=== PATIENT | male | born 1995 | race Caucasian/White ===

== ENCOUNTER 2023-03-01 13:48 | Outpatient (OUT) | payer BC, MEDICAID, SELFPAY ==
[2023-03-02 07:13] LABS: HIV Ab/p24 Ag Screen Non Reactive (Non Reactive)
== END 2023-03-01 13:49 ==
PROVIDERS: PCP Family Medicine; Visit Provider Family Medicine
DX: Z20.6 Contact with and (suspected) exposure to human immunodeficiency virus [HIV] (principal)
CPT/HCPCS: 36415; 87389

== ENCOUNTER 2023-03-09 07:58 | Outpatient (OUT) | payer BC, MEDICAID, SELFPAY ==
[2023-03-09 08:38] LABS: Basophils Absolute Auto 0.1 10^3/uL (0.0-0.1); Eosinophils Absolute Auto 0.2 10^3/uL (0.0-0.7); Eosinophils Percent Auto 4.2 % (0.9-7.0); Hematocrit 45.4 % (42.0-54.0); Hemoglobin 15.5 g/dL (14.0-18.0); Immature Granulocytes Abs Auto 0.01 10^3/uL (0.00-0.03); Immature Granulocytes Pct Auto 0.2 % (0.0-0.5); Lymphocytes Absolute Auto 1.9 10^3/uL (1.2-3.8); Lymphocytes Percent Auto 37.5 % (20.5-60.0); Mean Corpuscular HGB Conc 34.1 g/dL (29.9-35.2); Mean Corpuscular Hemoglobin 30.8 pg (25.9-34.0); Mean Corpuscular Volume 90.3 fL (80.0-94.0); Mean Platelet Volume 8.5 fL (9.5-13.5); Monocytes Absolute Auto 0.5 10^3/uL (0.3-0.8); Neutrophils Absolute Auto 2.4 10^3/uL (1.4-6.5); Neutrophils Percent Auto 48.1 % (43.0-75.0); Platelet Count 235 10^3/uL (150-450); Red Blood Count 5.03 10^6/uL (4.70-6.10); Red Cell Distribution Width 12.7 % (11.0-15.0)
[2023-03-09 08:49] LABS: Estimated Average Glucose 100 mg/dL; Glycohemoglobin A1C 5.1 % (4.5-6.2)
[2023-03-09 16:23] LABS: Alanine Aminotransferase 19 U/L (16-63); Albumin Globulin Ratio 1.4; Albumin Level 4.6 g/dL (3.4-5.0); Alkaline Phosphatase 78 U/L (46-116); Anion Gap 13.6; Aspartate Amino Transferase 10 U/L (15-37); BUN Creatinine Ratio 10.3; Bilirubin Total 0.5 mg/dL (0.2-1.0); Calcium 9.1 mg/dL (8.5-10.1); Carbon Dioxide 27.1 mmol/L (21.0-32.0); Chloride 100 mmol/L (98-107); Chol HDL Ratio 3.4; Cholesterol 159 mg/dL (<=200); Estimated GFR (African America >60 (>=60); Estimated GFR (Non-African Ame >60 (>=60); Globulin 3.2 g/dL; Glucose 90 mg/dL (74-106); HDL Cholesterol 47 mg/dL (40-60); Potassium 3.7 mmol/L (3.5-5.1); Sodium 137 mmol/L (136-145); Thyroid Stimulating Hormone 1.804 uIU/mL (0.358-3.740); Total Protein 7.8 g/dL (6.4-8.2); Triglycerides 55 mg/dL (<=150)
[2023-03-10 08:09] LABS: HBsAg Screen Negative (Negative); HCV Ab Non Reactive (Non Reactive); Hep A Ab, IgM Negative (Negative); Hep B Core Ab, IgM Negative (Negative)
== END 2023-03-09 07:59 ==
PROVIDERS: PCP Family Medicine; Visit Provider Family Medicine
DX: Z20.6 Contact with and (suspected) exposure to human immunodeficiency virus [HIV] (principal)
CPT/HCPCS: 36415; 80053; 80061; 80074; 83036; 83525; 84436; 84443; 84481; 85025

== ENCOUNTER 2023-04-05 13:39 | Outpatient (OUT) | payer BC, MEDICAID, SELFPAY ==
[2023-04-07 08:13] LABS: HIV Ab/p24 Ag Screen Non Reactive (Non Reactive)
== END 2023-04-05 13:40 | disposition home or self-care (01) ==
LOC: LAB 13:40
PROVIDERS: PCP Family Medicine; Visit Provider Family Medicine
DX: Z20.6 Contact with and (suspected) exposure to human immunodeficiency virus [HIV] (principal)
CPT/HCPCS: 36415; 87389

== ENCOUNTER 2023-06-25 09:21 | Outpatient (OUT) | payer BC, MEDICAID, SELFPAY ==
[2023-06-25 09:47] LABS: Basophils Absolute Auto 0.1 10^3/uL (0.0-0.1); Eosinophils Absolute Auto 0.2 10^3/uL (0.0-0.7); Eosinophils Percent Auto 4.1 % (0.9-7.0); Hematocrit 43.8 % (42.0-54.0); Immature Granulocytes Abs Auto 0.01 10^3/uL (0.00-0.03); Immature Granulocytes Pct Auto 0.2 % (0.0-0.5); Lymphocytes Absolute Auto 1.5 10^3/uL (1.2-3.8); Lymphocytes Percent Auto 29.3 % (20.5-60.0); Mean Corpuscular HGB Conc 34.2 g/dL (29.9-35.2); Mean Corpuscular Hemoglobin 30.9 pg (25.9-34.0); Mean Corpuscular Volume 90.3 fL (80.0-94.0); Mean Platelet Volume 8.6 fL (9.5-13.5); Monocytes Absolute Auto 0.5 10^3/uL (0.3-0.8); Monocytes Percent Auto 10.2 % (1.7-12.0); Neutrophils Absolute Auto 2.9 10^3/uL (1.4-6.5); Neutrophils Percent Auto 55.2 % (43.0-75.0); Platelet Count 208 10^3/uL (150-450); Red Blood Count 4.85 10^6/uL (4.70-6.10); Red Cell Distribution Width 12.6 % (11.0-15.0); White Blood Count 5.2 10^3/uL (4.0-11.0)
[2023-06-25 11:32] LABS: Alanine Aminotransferase 22 U/L (16-63); Albumin Globulin Ratio 1.6; Albumin Level 4.4 g/dL (3.4-5.0); Alkaline Phosphatase 80 U/L (46-116); Anion Gap 14.6; Aspartate Amino Transferase 12 U/L (15-37); BUN Creatinine Ratio 12.1; Calcium 9.5 mg/dL (8.5-10.1); Carbon Dioxide 27.4 mmol/L (21.0-32.0); Chloride 102 mmol/L (98-107); Estimated GFR (African America >60 (>=60); Estimated GFR (Non-African Ame >60 (>=60); Globulin 2.7 g/dL; Glucose 96 mg/dL (74-106); Sodium 140 mmol/L (136-145); Total Protein 7.1 g/dL (6.4-8.2)
[2023-06-26 08:12] LABS: HIV Ab/p24 Ag Screen Non Reactive (Non Reactive)
== END 2023-06-25 09:22 | disposition home or self-care (01) ==
PROVIDERS: PCP Family Medicine; Visit Provider Family Medicine
DX: Z20.6 Contact with and (suspected) exposure to human immunodeficiency virus [HIV] (principal)
CPT/HCPCS: 36415; 80053; 85025; 87389

== ENCOUNTER 2023-11-29 05:08 | Emergency (ER) | payer BC, SELFPAY ==
[2023-11-29 05:14] VITALS: BP 130/86; PULSE 97; RESP 16; TEMP 36.4; O2SAT 97; BMI 20.9
--- NOTE | 2023-11-29 05:17 | ECG_ITS ---
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
--- NOTE | 2023-11-29 05:41 | ED.WEAKNESS1 ---
HPI - Weakness General Chief complaint: Weakness Stated complaint: WEAKNESS Time Seen by Provider: 11/29/23 05:20 Source: patient and family Mode of arrival: Wheelchair Limitations: no limitations History of Present Illness HPI Narrative: This 28-year-old male with a history of anxiety and to some degree depression is brought to the emergency department by his father for evaluation of leg weakness. The patient states he got up this morning and could barely stand or walk due to weakness in his legs. He did not fall but states he was shaking and felt like he was going to fall. His father was able to help him into the car and brought him to the emergency department. He had to be assisted to the bed by the nursing staff from the wheelchair due to weakness in his legs. He denies any trauma or falls. He denies any back pain. He has no numbness or tingling. He states he feels like his legs are very heavy. The symptoms start at the level of his thighs and include the entire leg. He has not had any loss of bowel or bladder control. He does not have a headache or neck pain. The patient states that he has been taking Pristiq for his anxiety for the past 5-7 days. He is also on Xanax for his anxiety. Patient's mother when he was 13 and his brother also at a young age and it is the anniversary of his brother's and his birthday month in November. The patient states when he woke up this morning he felt like he was probably having anxiety while sleeping with spasms of his muscles and when he tried to get up and walk his muscles were weak from that. He took a Xanax prior to coming to the emergency department and states he is starting to feel somewhat better. He denies any fever. He has had a mild cough recently. He denies any chest pain at this time but states that since starting the Pristiq he has not had much of an appetite, it makes him feel nauseated after taking it and nothing tastes good to him. The patient states that he had mild generalized anxiety when he was younger and went to college at [employer]. Since graduating from college she has been living with his father and his anxiety has gotten to the point where he can barely leave the house. Getting into a car causes him severe anxiety to the extent that he works from home and walks to [employer] and that is the extent of his life and exercise. He had spoken to his Tele-Medicine about recently feeling like he was starting to exhibit depression which is when the Pristiq was started. He has been on other psychiatric medications in the past that he could not tolerate due to the side effects. MD Complaint: Reports focal weakness and difficulty walking Onset (ago): hour(s) (1) Duration: Reports constant Location: Reports LLE and RLE Severity: moderate Context: Reports new medication Related Data Home Medications Medication Instructions Recorded Confirmed alprazolam 0.25 mg tablet 0.5 mg PO DAILY 11/29/23 11/29/23 desvenlafaxine succinate 25 mg 25 mg PO Q24H 11/29/23 11/29/23 tablet,extended release 24 hr Allergies Allergy/AdvReac Type Severity Reaction Status Date / Time No Known Drug Allergies Allergy Verified 11/29/23 05:21 Review of Systems ROS Status of ROS 10 or more systems reviewed and unremarkable except as noted in history and below PFSH PFS Social History Smoking status: Current every day smoker Exam Narrative Exam Narrative: Nurses note and vital signs reviewed and patient is not hypoxic. General: Thin Mildly anxious male, no respiratory distress Skin: Warm, dry, no pallor noted. There is no rash noted. Head: Normocephalic, atraumatic Eye: Normal conjunctiva, no drainage, EOMI. PERRL. Vision is grossly intact Ears, Nose, Mouth, and Throat: oral mucosa is sticky Cardiovascular: Regular Rate and Rhythm S1S2, pulses are brisk and equal bilaterally Respiratory: Patient is in no distress, no accessory muscle use, lungs are clear to auscultation, no wheezing, rales or rhonchi Back: non-tender, no CVA tenderness bilaterally to percussion. GI: Normal bowel sounds, no tenderness to palpation, no masses appreciated. No rebound, guarding, or rigidity noted. Musculoskeletal: The patient has no evidence of calf tenderness, no pitting edema, symmetrical pulses noted bilaterally Neurological: A&O x4, normal speech, lower extremity strength is diffusely diminished subjectively but he is able to move all of his toes, has equal dorsi and plantar flexion, is able to lift each leg off of the bed and hold it against gravity. No saddle anesthesia appreciated. Upper extremity strength and sensation is intact. Psychiatric: Cooperative Constitutional Vital Signs, click to edit/add: Last Vital Signs Temp 97.5 F L 11/29/23 05:14 Pulse 97 H 11/29/23 05:14 Resp 16 11/29/23 05:14 BP 130/86 11/29/23 05:14 Pulse Ox 97 11/29/23 05:14 O2 Del Method Room Air 11/29/23 05:14 Course Vital Signs Vital signs: Vital Signs Temperature 97.5 F L 11/29/23 05:14 Pulse Rate 97 H 11/29/23 05:14 Respiratory Rate 16 11/29/23 05:14 Blood Pressure 130/86 11/29/23 05:14 Pulse Oximetry 97 11/29/23 05:14 Oxygen Delivery Method Room Air 11/29/23 05:14 Temperature 97.5 F L 11/29/23 05:14 Pulse Rate 97 H 11/29/23 05:14 Respiratory Rate 16 11/29/23 05:14 Blood Pressure 130/86 11/29/23 05:14 Pulse Oximetry 97 11/29/23 05:14 Oxygen Delivery Method Room Air 11/29/23 05:14 MDM - Weakness MDM Narrative Medical decision making narrative: This 28-year-old male presents for evaluation of bilateral lower extremity weakness and shakiness upon awakening this morning. Gently was started on Pristiq for anxiety and to a certain degree depression. He denies that this weakness started out in his feet or calves and spread upwards. His legs from the thighs down are generally weak and shaky since awakening this morning. He states his legs feel heavy. He does not have any back pain. He has not been eating well or drinking much since starting the Pristiq because he does not have an appetite and has been making him nauseous. His symptoms are not consistent with Guillan Anthon and his neuro exam, besides generalized weakness when standing is normal. Reviewed the side effects of this medication that can include chills, cold sweats, confusion, irregular pulse, numbness or tingling in the arms or legs, shakiness in the legs arms hands or feet and generalized weakness. Loss of appetite is another side effect. Loss of bladder control as a side effect but he has not had any loss of bowel or bladder control. He is not having a child breathing or swallowing he has not been vomiting and there is no sign of any jaundice. He was medicated emergency department with IV fluids. He had taken Xanax prior to coming to the emergency department because his symptoms were concerning to him and he thought he may be having a decided or panic while sleeping which was causing his muscles to spasm. He has a normal white count and hemoglobin. Electrolytes are normal.Inflammatory markers of sedimentation rate and CRP are normal. Respiratory panel is negative. Troponin is normal. CPK is normal indicating he is likely not in rhabdomyolysis. Clinically he is most likely experiencing a reaction from the Pristiq which appears to be improving at this time. He was able to ambulate to the bathroom and was stronger and steady on his feet. Urine is negative for blood or infection. He provided a urine sample and states that he does not feel that his symptoms are worsening or ascending. He would like to go home and agrees to return to the ER if he does have worsening symptoms or ascending symptoms. Lab Data Labs: Lab Results 11/29/23 11/29/23 11/29/23 Range/Units 05:24 05:46 06:41 WBC 6.5 (4.0-11.0) 10^3/uL RBC 4.93 (4.70-6.10) 10^6/uL Hgb 15.1 (14.0-18.0) g/dL Hct 43.5 (42.0-54.0) % MCV 88.2 (80.0-94.0) fL MCH 30.6 (25.9-34.0) pg MCHC 34.7 (29.9-35.2) g/dL RDW 12.2 (11.0-15.0) % Plt Count 245 (150-450) 10^3/uL MPV 8.6 L (9.5-13.5) fL Neut % (Auto) 50.6 (43.0-75.0) % Lymph % (Auto) 35.3 (20.5-60.0) % Whitman % (Auto) 9.5 (1.7-12.0) % Eos % (Auto) 3.4 (0.9-7.0) % Baso % (Auto) 0.9 (0.2-2.0) % Neut # (Auto) 3.3 (1.4-6.5) 10^3/uL Lymph # (Auto) 2.3 (1.2-3.8) 10^3/uL Whitman # (Auto) 0.6 (0.3-0.8) 10^3/uL Eos # (Auto) 0.2 (0.0-0.7) 10^3/uL Baso # (Auto) 0.1 (0.0-0.1) 10^3/uL Abs Immat Gran (auto) 0.02 (0.00-0.03) 10^3/uL Imm/Tot Granulo (auto) 0.3 (0.0-0.5) % ESR <1 (<=15) mm/hr Sodium 138 (136-145) mmol/L Potassium 3.6 (3.5-5.1) mmol/L Chloride 101 (98-107) mmol/L Carbon Dioxide 24.3 (21.0-32.0) mmol/L Anion Gap 16.3 BUN 12.0 (7.0-18.0) mg/dL Creatinine 1.04 (0.70-1.30) mg/dL Est GFR ( Amer) >60 (>=60) Est GFR (Non-Af Amer) >60 (>=60) BUN/Creatinine Ratio 11.5 Glucose 105 (74-106) mg/dL Calcium 9.0 (8.5-10.1) mg/dL Total Bilirubin 1.1 H (0.2-1.0) mg/dL AST 12 L (15-37) U/L ALT 17 (16-63) U/L Alkaline Phosphatase 75 (46-116) U/L Total Creatine Kinase 142 (39-308) U/L Troponin I High Sens <4.0 L (4.0-76.1) pg/mL C-Reactive Protein <0.50 (<=0.50) mg/dL Total Protein 7.4 (6.4-8.2) g/dL Albumin 4.5 (3.4-5.0) g/dL Globulin 2.9 g/dL Albumin/Globulin Ratio 1.6 Urine Color Lt. yellow (YELLOW) Urine Clarity Clear (CLEAR) Urine pH 7.0 (5.0-9.0) Ur Specific [place] 1.010 (1.005-1.025) Urine Protein Negative (NEG/TRACE) mg/dL Urine Glucose (UA) Negative (NEGATIVE) mg/dL Urine Ketones Negative (NEGATIVE) mg/dL Urine Occult Blood Trace-i (NEGATIVE) Urine Nitrite Negative (NEGATIVE) Urine Bilirubin Negative (NEGATIVE) Urine Urobilinogen 0.2 (0.2-1.0) EU/dL Ur Leukocyte Esterase Negative (NEGATIVE) Urine RBC 0-2 (0-2) #/HPF Urine WBC None seen (NONE SEEN) #/HPF Ur Squamous Epith Cells None seen (NONE/RARE) #/LPF Urine Crystals None seen (None Seen) #/HPF Urine Bacteria None seen (NONE SEEN) #/HPF Urine Casts None seen (NONE SEEN) #/LPF Urine Mucus None seen (NONE SEEN) Adenovirus (PCR) Not detected (NOT DETECTE) C. pneumoniae DNA (PCR) Not detected (NOT DETECTE) Coronavirus Type OC43 Not detected (NOT DETECTE) Coronavirus Type HKU1 Not detected (NOT DETECTE) Coronavirus Type 229E Not detected (NOT DETECTE) Coronavirus Type NL63 Not detected (NOT DETECTE) Human Metapneumovir PCR Not detected (NOT DETECTE) M. pneumoniae (PCR) Not detected (NOT DETECTE) Parainfluenza PCR Not detected (NOT DETECTE) Parainfluenza 2 (PCR) Not detected (NOT DETECTE) Parainfluenza 3 (PCR) Not detected (NOT DETECTE) Parainfluenza 4 (PCR) Not detected (NOT DETECTE) RSV (RT-PCR) Not detected (NOT DETECTE) Entero/Rhino (PCR) Not detected (NOT DETECTE) SARS-CoV-2 (PCR) Not detected (NOT DETECTE) Bordetella pertussis (PCR) Not detected (NOT DETECTE) B parapertussis DNA PCR Not detected (NOT DETECTE) Influenza Type A (PCR) Not detected (NOT DETECTE) Influenza Type B (PCR) Not detected (NOT DETECTE) ECG Data Attestation: I personally reviewed and interpreted this ECG as follows: (Sinus rhythm at 92 beats for minute, normal axis, nonspecific ST changes, no acute ST segment elevation or T-wave inversion) Discharge Plan Discharge Chief Complaint: Weakness Clinical Impression: Medication side effects, Bilateral leg weakness Patient Disposition: Home, Self-Care Time of Disposition Decision: 06:57 Condition: Fair Prescriptions / Home Meds: No Action desvenlafaxine succinate 25 mg tablet extended release 24 hr 25 mg PO Q24H alprazolam 0.25 mg tablet 0.5 mg PO DAILY Instructions: Weakness (ED), Adverse Drug Reaction (ED) Referrals: VERONICA LOUIS [Primary Care Provider] - 1 week Stand Alone Forms: Portal Instructions
[2023-11-29 05:43] LABS: Basophils Absolute Auto 0.1 10^3/uL (0.0-0.1); Basophils Percent Auto 0.9 % (0.2-2.0); Eosinophils Absolute Auto 0.2 10^3/uL (0.0-0.7); Eosinophils Percent Auto 3.4 % (0.9-7.0); Hematocrit 43.5 % (42.0-54.0); Hemoglobin 15.1 g/dL (14.0-18.0); Immature Granulocytes Abs Auto 0.02 10^3/uL (0.00-0.03); Immature Granulocytes Pct Auto 0.3 % (0.0-0.5); Lymphocytes Absolute Auto 2.3 10^3/uL (1.2-3.8); Lymphocytes Percent Auto 35.3 % (20.5-60.0); Mean Corpuscular HGB Conc 34.7 g/dL (29.9-35.2); Mean Corpuscular Hemoglobin 30.6 pg (25.9-34.0); Mean Corpuscular Volume 88.2 fL (80.0-94.0); Mean Platelet Volume 8.6 fL (9.5-13.5); Monocytes Absolute Auto 0.6 10^3/uL (0.3-0.8); Monocytes Percent Auto 9.5 % (1.7-12.0); Neutrophils Absolute Auto 3.3 10^3/uL (1.4-6.5); Neutrophils Percent Auto 50.6 % (43.0-75.0); Platelet Count 245 10^3/uL (150-450); Red Blood Count 4.93 10^6/uL (4.70-6.10); Red Cell Distribution Width 12.2 % (11.0-15.0); White Blood Count 6.5 10^3/uL (4.0-11.0)
[2023-11-29] MEDS: 0.9 % SODIUM CHLORIDE 1,000 ML 1000 ML IV (05:44)
[2023-11-29 05:48] LABS: Erythrocyte Sedimentation Rate <1 mm/hr (<=15)
[2023-11-29 05:50] LABS: Adenovirus NOT DETECTED (NOT DETECTE); Bordetella parapertussis NOT DETECTED (NOT DETECTE); Coronavirus 229E NOT DETECTED (NOT DETECTE); Coronavirus HKU1 NOT DETECTED (NOT DETECTE); Coronavirus NL63 NOT DETECTED (NOT DETECTE); Coronavirus OC43 NOT DETECTED (NOT DETECTE); Human Metapneumovirus NOT DETECTED (NOT DETECTE); Human Rhinovirus/Enterovirus NOT DETECTED (NOT DETECTE); Influenza A NOT DETECTED (NOT DETECTE); Influenza B NOT DETECTED (NOT DETECTE); Mycoplasma pneumoniae NOT DETECTED (NOT DETECTE); Parainfluenza Virus 1 NOT DETECTED (NOT DETECTE); Parainfluenza Virus 2 NOT DETECTED (NOT DETECTE); Parainfluenza Virus 3 NOT DETECTED (NOT DETECTE); Parainfluenza Virus 4 NOT DETECTED (NOT DETECTE); Respiratory Syncytial Virus NOT DETECTED (NOT DETECTE); SARS-CoV-2 NOT DETECTED (NOT DETECTE)
[2023-11-29 05:56] LABS: Alanine Aminotransferase 17 U/L (16-63); Albumin Globulin Ratio 1.6; Albumin Level 4.5 g/dL (3.4-5.0); Alkaline Phosphatase 75 U/L (46-116); Anion Gap 16.3; Aspartate Amino Transferase 12 U/L (15-37); BUN Creatinine Ratio 11.5; Bilirubin Total 1.1 mg/dL (0.2-1.0); Carbon Dioxide 24.3 mmol/L (21.0-32.0); Chloride 101 mmol/L (98-107); Estimated GFR (African America >60 (>=60); Estimated GFR (Non-African Ame >60 (>=60); Globulin 2.9 g/dL; Glucose 105 mg/dL (74-106); Potassium 3.6 mmol/L (3.5-5.1); Sodium 138 mmol/L (136-145); Total Protein 7.4 g/dL (6.4-8.2)
[2023-11-29 06:00] LABS: C Reactive Protein <0.50 mg/dL (<=0.50); Creatine Kinase 142 U/L (39-308); Troponin I High Sensitivity <4.0 pg/mL (4.0-76.1)
[2023-11-29 06:45] LABS: Bilirubin Urine NEGATIVE (NEGATIVE); Blood Urine TRACE-I (NEGATIVE); Clarity Urine CLEAR (CLEAR); Color Urine LT. YELLOW (YELLOW); Glucose Urine UA NEGATIVE (NEGATIVE); Ketones Urine NEGATIVE (NEGATIVE); Leukocyte Esterase Urine NEGATIVE (NEGATIVE); Nitrite Urine NEGATIVE (NEGATIVE); Protein Urine NEGATIVE (NEG/TRACE); Urobilinogen Urine 0.2 EU/dL (0.2-1.0)
[2023-11-29 06:51] LABS: Bacteria Urine NONE SEEN #/HPF (NONE SEEN); Crystals Seen? None Seen #/HPF (None Seen); Mucus Urine NONE SEEN (NONE SEEN); RBC Urine 0-2 #/HPF (0-2); Squamous Epithelial Cell Urine NONE SEEN #/LPF (NONE/RARE); WBC Urine NONE SEEN #/HPF (NONE SEEN)
[2023-11-29 06:52] LABS: Cast Seen? NONE SEEN #/LPF (NONE SEEN)
== END 2023-11-29 07:09 | disposition home or self-care (01) ==
PROVIDERS: Emergency Provider Emergency Medicine; PCP Nurse Practitioner
DX: R53.1 Weakness (principal); T43.215A Adverse effect of selective serotonin and norepinephrine reuptake inhibitors, initial encounter; F41.9 Anxiety disorder, unspecified; Z79.899 Other long term (current) drug therapy; F17.210 Nicotine dependence, cigarettes, uncomplicated; Z20.822 Contact with and (suspected) exposure to COVID-19
CPT/HCPCS: 0202U; 36415; 80053; 81001; 82550; 84484; 85025; 85652; 86140; 93005; 99283

== ENCOUNTER 2024-04-03 11:10 | Outpatient (OUT) | payer BC, SELFPAY ==
--- OUTSIDE RECORDS SUMMARY | 2024-04-03 11:20 | XMS_ITS | CCD ---
Author Organization [facility] Care Team Providers Care Staff Editor Name Role Phone CINDY ., DR INGRAM Attending Unavailable HOY ., DR INGRAM Admitting Unavailable HOY ., DR INGRAM Primary Care Unavailable HOY ., DR INGRAM Consulting Unavailable HOY ., DR INGRAM Admitting Unavailable HOY ., DR INGRAM Primary Care Unavailable HOY ., DR INGRAM Consulting Unavailable HOY ., DR INGRAM Attending Unavailable Mis, Waleska Shields Primary Care Physician Akbar Cooper Attending Unavailab Akbar Dyer Admitting Unavailab Nataly Matthews Primary Care Unavailable Cher Delcid Attending Unavailable Mis, Waleska Shields Attending Unavailable Mis, Waleska Shields Attending Unavailable Mis, Waleska Shields Attending Unavailable Mis, Waleska Shields Attending Unavailable Mis, Waleska Shields Attending Unavailable Mis, Waleska Shields Attending Unavailable Mis, Waleska Shields Admitting Unavailable Mis, Waleska Shields Attending Unavailable Mis, Waleska Shields Admitting Unavailable Mis, Waleska Shields Attending Unavailable Medications Current Medications Medication Drug Class(es) Dates Sig (Normalized) Sig (Original) ALPRAZolam 0.25 mg oral tablet (2 sources) Benzodiazepine Start: 11-26-2023 alprazolam 0.25 mg Tab 60 EA, 0 Refill(s), TAKE TWO TABLETS BY MOUTH DAILY NEEDED FOR ANXIETY, Refills(s) 0 Start Date: 11/26/23 Status: Ordered cabotegravir 30 MG Oral Tablet (1 source) Start: 11-26-2023 take 1 tablet by mouth once daily cabotegravir 30 mg oral tablet 30 mg = 1 tab(s), Oral, Daily, to be taken for 28 days prior to starting IM injections, # 28 tab(s), Refills(s) 0, Pharmacy: [facility], 158, cm, 11/26/23 13:08:00 EST, Height/Length Dosing, 54.3, kg, 11/26/23 13:08:00 EST, Weight Dosing Start Date: 11/26/23 Status: Ordered 24 hr desvenlafaxine succinate 25 mg extended release oral tablet (1 source) Serotonin and Norepinephrine Reuptake Inhibitor Start: 11-26-2023 take 1 tablet by mouth once daily desvenlafaxine 25 mg oral tablet, extended release 25 mg = 1 tab(s), Oral, Daily, Refills(s) 0 Start Date: 11/26/23 Status: Ordered esomeprazole 20 mg delayed release oral capsule (2 sources) Proton Pump Inhibitor Start: 11-26-2023 take 1 capsule by mouth once daily Nexium 20 mg Cap-DR 20 mg = 1 cap(s), Oral, Daily, Refills(s) 0 Start Date: 11/26/23 Status: Ordered montelukast 10 mg oral tablet (1 source) Leukotriene Receptor Antagonist Start: 02-27-2024 take 1 tablet by mouth once daily in the evening Singulair 10 mg Tab 10 mg = 1 tab(s), Oral, qPM, # 30 tab(s), Refills(s) 0, Pharmacy: [facility], 167, cm, 02/27/24 13:44:00 EDT, Height/Length Dosing, 54, kg, 02/27/24 13:44:00 EDT, Weight Dosing Start Date: 02/27/24 Status: Ordered Completed/Discontinued Medications Medication Drug Class(es) Dates Sig (Normalized) Sig (Original) hydrOXYzine pamoate 25 mg oral capsule (2 sources) Antihistamine Start: 11-26-2023 hydrOXYzine pamoate 25 mg Cap 90 EA, 0 Refill(s), TAKE ONE (1) CAPSULE BY MOUTH THREE TIMES PER DAY NEEDED FOR ANXIETY, Refills(s) 0 Start Date: 11/26/23 Status: Ordered Problems Problem Classification Problem Date Documented Da te Episodic/Chronic Genitourinary symptoms and ill-defined conditions (4 sources) Dysuria; Translations: [DYSURIA] Onset: 12-21-2022 Episodic Other injuries and conditions due to external causes (4 sources) Other specified effects of external causes, initial encounter; Translations: [OTH SPEC EFFECTS EXT CAUSES INITIAL] Onset: 12-12-2022 Episodic Other upper respiratory disease (1 source) Seasonal allergy 02-27-2024 Chronic Other upper respiratory infections (1 source) Sinusitis 01-22-2024 Chronic Otitis media and related conditions (1 source) Finding of fluid behind tympanic membrane 01-22-2024 Episodic Residual codes; unclassified (2 sources) High risk homosexual behavior 11-26-2023 Episodic Residual codes; unclassified (1 source) At risk of sexually transmitted infection 12-24-2023 Episodic Substance-related disorders (1 source) Smoker 02-27-2024 Chronic Results Test Name Value Interpretation Reference Range Facility [facility] 03-24-2024 Consent [id number]. [id number] Normal [facility] Ambulatory Visit Summaryon 0 03-23-2024 Ambulatory Visit Summary MALLORIEMAGGIE MORRIS :1995 Visit Date:03/23/2024 Ambulatory Visit Instructions Your Diagnosis Seasonal allergies Fluid level behind tympanic membrane of right ear Body mass index (BMI) of 19.0-19.9 in adult Underweight Your Care Team Attending Physician - Waleska Dean Primary Care Physician - Waleska Dean This Is Your Medications List alprazolam (alprazolam 0.25 mg Tab) esomeprazole (Nexium 20 mg Cap-DR) hydrOXYzine (hydrOXYzine pamoate 25 mg Cap) montelukast (Singulair 10 mg Tab) What to do next Scheduled Follow-Up Appointments 2023 1:20 PM EDT Where: [facility] Family Medicine Office/Clini c Noteon 03-23-2024 Family Medicine Office/Clinic Note HPI Staff Maggie is a 28 year old male presenting for acute sick visit Pt states allergies are bad and would like a Kenalog shot History of Present Illness pt presets today with allergy symptoms that are not improving. Physical Exam General: alert, no acute distress ENMT: oral mucosa moist, no pharyngeal erythema or exudate Cardiovascular: regular rate and rhythm, normal peripheral perfusion Respiratory: Lungs CTA, respirations non labored Extremities: no deformity, no trauma Neurological: oriented x 4, LOC appropriate for age, CN II-XII intact, motor strength equal & normal bilaterally, speech normal Assessment/Plan 1. Seasonal allergies (J30.2: Other seasonal allergic rhinitis) pt states allergy symptoms are worsening and he is miserable. pt to take zyrtec in am and singulair at night. kenalog given in office. RTC as needed Ordered: triamcinolone, 40 mg = 1 mL, Injection, IntraMuscular, Once, Stop date 03/23/24 15:43:00 EDT, Routine, Start date 03/23/24 15:43:00 EDT, 03/23/24 15:43:00 EDT 2. Fluid level behind tympanic membrane of right ear (H65.91: Unspecified nonsuppurative otitis media, right ear) right TM is still full of fluid. will give kenalog injection in office today. Ordered: triamcinolone, 40 mg = 1 mL, Injection, IntraMuscular, Once, Stop date 03/23/24 15:43:00 EDT, Routine, Start date 03/23/24 15:43:00 EDT, 03/23/24 15:43:00 EDT 3. Body mass index (BMI) of 19.0-19.9 in adult (Z68.1: Body mass index [BMI] 19.9 or less, adult) BMI education given Ordered: triamcinolone, 40 mg = 1 mL, Injection, IntraMuscular, Once, Stop date 03/23/24 15:43:00 EDT, Routine, Start date 03/23/24 15:43:00 EDT, 03/23/24 15:43:00 EDT 4. Underweight (R63.6: Underweight) Ordered: triamcinolone, 40 mg = 1 mL, Injection, IntraMuscular, Once, Stop date 03/23/24 15:43:00 EDT, Routine, Start date 03/23/24 15:43:00 EDT, 03/23/24 15:43:00 EDT Follow-up No qualifying data available Patient Education BMI for Adults Problem List/Past Medical History Ongoing At risk for sexually transmitted disease due to partner with HIV Body mass index (BMI) of 19.0-19.9 in adult Fluid level behind tympanic membrane of right ear High risk homosexual behavior Seasonal allergies Sinusitis Smoker Underweight Historical No qualifying data Medications alprazolam 0.25 mg Tab hydrOXYzine pamoate 25 mg Cap Nexium 20 mg Cap-DR, 20 mg= 1 cap(s), Oral, Daily Singulair 10 mg Tab, 10 mg= 1 tab(s), Oral, qPM Allergies No Known Allergies Social History Tobacco 10 or more cigarettes (1/2 pack or more)/day in last 30 days Tobacco Use:. Never Smokeless Tobacco Use:. Cigarettes, Ready to change: No. Household tobacco concerns: No. Yes, 03/23/2024 Family History Acute myocardial infarction: Mother and Father. Diabetes mellitus type 2: Mother. Immunizations Vaccine Date Status Comments SARS-CoV-2 (COVID-19) mRNA-1273 vaccine 09/18/2021 Recorded 2023-11-25: TPVALL influenza, unspecified formulation 07/14/2021 Recorded SARS-CoV-2 (COVID-19) mRNA-1273 vaccine 02/20/2021 Recorded 2023-11-25: TPVALL SARS-CoV-2 (COVID-19) mRNA-1273 vaccine 01/23/2021 Recorded 2023-11-25: TPVALL influenza virus vaccine, inactivated 07/26/2020 Recorded influenza virus vaccine, inactivated 07/13/2019 Recorded influenza virus vaccine, inactivated 08/13/2018 Recorded measles/mumps/rubella virus vaccine 03/01/1999 Recorded DTaP, unspecified formulation 03/01/1999 Recorded measles/mumps/rubella virus vaccine 03/25/1995 Recorded Hib, unspecified formulation 03/25/1995 Recorded DTaP, unspecified formulation 03/25/1995 Recorded hepatitis B pediatric vaccine 04/04/1994 Recorded Hib, unspecified formulation 04/04/1994 Recorded hepatitis B pediatric vaccine 1993 Recorded Hib, unspecified formulation 1993 Recorded hepatitis B pediatric vaccine 1993 Recorded Hib, unspecified formulation 1993 Recorded Normal [facility] Comment on above: Result Comment: Elec tronically Signed By: Waleska Dean\.br\Date and Time Signed: 03/23/24 15:45 EDT Patient Educationon 03-23-20 Patient Education Nutrition BMI for Adults What is BMI? Body mass index (BMI) is a number that is calculated from a person's weight and height. BMI can help estimate how much of a person's weight is composed of fat. BMI does not measure body fat directly. Rather, it is an alternative to procedures that directly measure body fat, which can be difficult and expensive. BMI can help identify people who may be at higher risk for certain medical problems. What are BMI measurements used for? BMI is used as a screening tool to identify possible weight problems. It helps determine whether a person is obese, overweight, a healthy weight, or underweight. BMI is useful for: ? Identifying a weight problem that may be related to a medical condition or may increase the risk for medical problems. ? Promoting changes, such as changes in diet and exercise, to help reach a healthy weight. BMI screening can be repeated to see if these changes are working. How is BMI calculated? BMI involves measuring your weight in relation to your height. Both height and weight are measured, and the BMI is calculated from those numbers. This can be done either in [place] or metric measurements. Note that charts and online BMI calculators are available to help you find your BMI quickly and easily without having to do these calculations yourself. To calculate your BMI in [place] measurements: 1. Measure your weight in pounds (lb). 2. Multiply the number of pounds by 703. ? For example, for a person who weighs 180 lb, multiply that number by 703, which equals 126,540. 3. Measure your height in inches. Then multiply that number by itself to get a measurement called inches squared. ? For example, for a person who is 70 inches tall, the inches squared measurement is 70 inches x 70 inches, which equals 4,900 inches squared. 4. Divide the total from step 2 (number of lb x 703) by the total from step 3 (inches squared): 126,540 ? 4,900 = 25.8. This is your BMI. To calculate your BMI in metric measurements: 1. Measure your weight in kilograms (kg). 2. Measure your height in meters (m). Then multiply that number by itself to get a measurement called meters squared. ? For example, for a person who is 1.75 m tall, the meters squared measurement is 1.75 m x 1.75 m, which is equal to 3.1 meters squared. 3. Divide the number of kilograms (your weight) by the meters squared number. In this example: 70 ? 3.1 = 22.6. This is your BMI. What do the results mean? BMI charts are used to identify whether you are underweight, normal weight, overweight, or obese. The following guidelines will be used: ? Underweight: BMI less than 18.5. ? Normal weight: BMI between 18.5 and 24.9. ? Overweight: BMI between 25 and 29.9. ? Obese: BMI of 30 or above. Keep these notes in mind: ? Weight includes both fat and muscle, so someone with a muscular build, such as an athlete, may have a BMI that is higher than 24.9. In cases like these, BMI is not an accurate measure of body fat. ? To determine if excess body fat is the cause of a BMI of 25 or higher, further assessments may need to be done by a health care provider. ? BMI is usually interpreted in the same way for men and women. Where to find more information For more information about BMI, including tools to quickly calculate your BMI, go to these websites: ? Centers for Disease Control and Prevention: www.cdc.gov ? [place] Heart Association: www.heart.org ? National Heart, Lung, and Blood [place]: www.nhlbi.nih.gov Summary ? Body mass index (BMI) is a number that is calculated from a person's weight and height. ? BMI may help estimate how much of a person's weight is composed of fat. BMI can help identify those who may be at higher risk for certain medical problems. ? BMI can be measured using [place] measurements or metric measurements. ? BMI charts are used to identify whether you are underweight, normal weight, overweight, or obese. This information is not intended to replace advice given to you by your health care provider. Make sure you discuss any questions you have with your health care provider. Document Revised: 06/08/2020 Document Reviewed: 04/15/2020 [employer] Patient Education ? 2022 [employer] Normal [facility] HIV Screen 4th Generation wR fxon 02-29-2024 HIV 1+2 Ab+HIV1 p24 Ag IA Ql Non-Reactive Invalid Interpretation Code Non Reactive [facility] Comment on above: Result Comment: HIV Negative HIV-1/HIV-2 antibodies and HIV-1 p24 antigen were NOT detected. There is no laboratory evidence of HIV infection. Performed at: [facility] [id number] PhD Alexandre Campo Performed By: #### [id number] #### [facility] [address] [place] [address] Family Medicine Office/Clini c Noteon 02-27-2024 Family Medicine Office/Clinic Note Chief Complaint follow up HPI Staff Maggie is a 28 year old male presenting for 3 month follow up on descovy. Will need HIV test Not taking descovy due to nausea and vomiting afterwards. No other concerns at this time. History of Present Illness pt presents today for 3 month follow up. Review of Systems PHQ Score Initial Depression Screen Score: 0 SCORE Physical Exam Vitals & Measurements HR: 68(Peripheral) RR: 16 BP: 106/64 HT: 66 in HT: 167 cm WT: 54 kg WT: 118.8 lb BMI: 19.36 General: alert, no acute distress ENMT: oral mucosa moist, no pharyngeal erythema or exudate Cardiovascular: regular rate and rhythm, normal peripheral perfusion Respiratory: Lungs CTA, respirations non labored Extremities: no deformity, no trauma Neurological: oriented x 4, LOC appropriate for age, CN II-XII intact, motor strength equal & normal bilaterally, speech normal Assessment/Plan 1. At risk for sexually transmitted disease due to partner with HIV (Z91.89: Other specified personal risk factors, not elsewhere classified) pt presents for 3 month follow up on descovy. pt was not able to keep it down. will just check his HIV status every 3 months. his partners viral load is 48 so not at undetected status. he continues to practice safe sex practices. RTC 3 months for lab draw Ordered: montelukast, 10 mg = 1 tab(s), Oral, qPM, # 30 tab(s), Refills(s) 0, Pharmacy: [facility], 167, cm, 02/27/24 13:44:00 EDT, Height/Length Dosing, 54, kg, 02/27/24 13:44:00 EDT, Weight Dosing HIV Screen 4th Generation wRfx 2. Seasonal allergies (J30.2: Other seasonal allergic rhinitis) takes zyrtec. offered kenalog. will try singulair first. Ordered: montelukast, 10 mg = 1 tab(s), Oral, qPM, # 30 tab(s), Refills(s) 0, Pharmacy: [facility], 167, cm, 02/27/24 13:44:00 EDT, Height/Length Dosing, 54, kg, 02/27/24 13:44:00 EDT, Weight Dosing 3. Body mass index [BMI] 19.9 or less, adult (Z68.1: Body mass index [BMI] 19.9 or less, adult) BMI education complete Ordered: montelukast, 10 mg = 1 tab(s), Oral, qPM, # 30 tab(s), Refills(s) 0, Pharmacy: [facility], 167, cm, 02/27/24 13:44:00 EDT, Height/Length Dosing, 54, kg, 02/27/24 13:44:00 EDT, Weight Dosing 4. Smoker (F17.200: Nicotine dependence, unspecified, uncomplicated) consider not smoking Ordered: montelukast, 10 mg = 1 tab(s), Oral, qPM, # 30 tab(s), Refills(s) 0, Pharmacy: [facility], 167, cm, 02/27/24 13:44:00 EDT, Height/Length Dosing, 54, kg, 02/27/24 13:44:00 EDT, Weight Dosing Current tobacco smoker [id number] Follow-up No qualifying data available Problem List/Past Medical History Ongoing At risk for sexually transmitted disease due to partner with HIV Fluid level behind tympanic membrane of right ear High risk homosexual behavior Seasonal allergies Sinusitis Smoker Historical No qualifying data Medications alprazolam 0.25 mg Tab hydrOXYzine pamoate 25 mg Cap Nexium 20 mg Cap-DR, 20 mg= 1 cap(s), Oral, Daily Singulair 10 mg Tab, 10 mg= 1 tab(s), Oral, qPM Allergies No Known Allergies Social History Tobacco 10 or more cigarettes (1/2 pack or more)/day in last 30 days Tobacco Use:. Never Smokeless Tobacco Use:. Cigarettes, Ready to change: No. Household tobacco concerns: No. Yes, 02/27/2024 Family History Acute myocardial infarction: Mother and Father. Diabetes mellitus type 2: Mother. Immunizations Vaccine Date Status Comments SARS-CoV-2 (COVID-19) mRNA-1273 vaccine 09/18/2021 Recorded 2023-11-25: TPVALL influenza, unspecified formulation 07/14/2021 Recorded SARS-CoV-2 (COVID-19) mRNA-1273 vaccine 02/20/2021 Recorded 2023-11-25: TPVALL SARS-CoV-2 (COVID-19) mRNA-1273 vaccine 01/23/2021 Recorded 2023-11-25: TPVALL influenza virus vaccine, inactivated 07/26/2020 Recorded influenza virus vaccine, inactivated 07/13/2019 Recorded influenza virus vaccine, inactivated 08/13/2018 Recorded measles/mumps/rubella virus vaccine 03/01/1999 Recorded DTaP, unspecified formulation 03/01/1999 Recorded measles/mumps/rubella virus vaccine 03/25/1995 Recorded Hib, unspecified formulation 03/25/1995 Recorded DTaP, unspecified formulation 03/25/1995 Recorded hepatitis B pediatric vaccine 04/04/1994 Recorded Hib, unspecified formulation 04/04/1994 Recorded hepatitis B pediatric vaccine 1993 Recorded Hib, unspecified formulation 1993 Recorded hepatitis B pediatric vaccine 1993 Recorded Hib, unspecified formulation 1993 Recorded Normal [facility] Comment on above: Result Comment: Elec tronically Signed By: Waleska Dean\.br\Date and Time Signed: 02/27/24 14:04 EDT Ambulatory Visit Summaryon 0 01-22-2024 Ambulatory Visit Summary MAGGIE NOBLES :1995 Visit Date:01/22/2024 Ambulatory Visit Instructions Your Diagnosis Sinusitis Fluid level behind tympanic membrane of right ear BMI 22.0-22.9, adult Smoker Your Care Team Attending Physician - Waleska Dean Primary Care Physician - Waleska Dean This Is Your Medications List alprazolam (alprazolam 0.25 mg Tab) esomeprazole (Nexium 20 mg Cap-DR) hydrOXYzine (hydrOXYzine pamoate 25 mg Cap) ondansetron (ondansetron 4 mg Tab) Discharge Vitals Heart Rate (Peripheral) 70 Respiratory Rate 18 Blood Pressure 100/78 Height 158.0 cm Height 62 in Weight 55.3 kg Weight 121.66 lb BMI 22.15 What to do next Scheduled Follow-Up Appointments 2023 1:40 PM EDT With: Waleska Dean Where: [facility] [place] [facility] Office/Clini c Noteon 01-22-2024 [facility] Office/Clinic Note HPI Staff Maggie is a 28 year old male presenting for acute visit Onset: 4 days ago Constant ache with intermittent sharp Pain around right eye socket tender to touch, headache and slight unsteady dizziness, fatigued, denies nausea or vomiting. History of Present Illness pt presents today for pressure around right eye sinuses, headache and dizziness Review of Systems PHQ Score Initial Depression Screen Score: 0 SCORE Physical Exam Vitals & Measurements HR: 70(Peripheral) RR: 18 BP: 100/78 SpO2: 98% HT: 62 in HT: 158.0 cm WT: 55.3 kg WT: 121.66 lb BMI: 22.15 General: alert, no acute distress ENMT: oral mucosa moist, no pharyngeal erythema or exudate Cardiovascular: regular rate and rhythm, normal peripheral perfusion Respiratory: Lungs CTA, respirations non labored Extremities: no deformity, no trauma Neurological: oriented x 4, LOC appropriate for age, CN II-XII intact, motor strength equal & normal bilaterally, speech normal swelling noted around right eye, sinus tenderness, right TM full of clear fluid Assessment/Plan 1. Sinusitis (J32.9: Chronic sinusitis, unspecified) right sinus above and below eye are swollen and tender to touch. will order amoxicillin and medrol dose pack. if no improvement by saturday will consider x ray of sinuses. also c/o headaches and some dizziness Ordered: amoxicillin, 875 mg = 1 tab(s), Oral, BID, X 7 day(s), # 14 tab(s), Refills(s) 0, Pharmacy: [facility], 158, cm, 01/22/24 9:12:00 EDT, Height/Length Dosing, 55.3, kg, 01/22/24 9:12:00 EDT, Weight Dosing methylPREDNISolone, = 1 packet(s), Oral, As Directed, as directed on package labeling, X 6 day(s), # 21 tab(s), Refills(s) 0, [facility], 158, cm, 01/22/24 9:12:00 EDT, Height/Length Dosing, 55.3, kg, 01/22/24 9:12:00 EDT, Weight Dosing 2. Fluid level behind tympanic membrane of right ear (H65.91: Unspecified nonsuppurative otitis media, right ear) right TM full of clear fluid Ordered: amoxicillin, 875 mg = 1 tab(s), Oral, BID, X 7 day(s), # 14 tab(s), Refills(s) 0, Pharmacy: [facility], 158, cm, 01/22/24 9:12:00 EDT, Height/Length Dosing, 55.3, kg, 01/22/24 9:12:00 EDT, Weight Dosing methylPREDNISolone, = 1 packet(s), Oral, As Directed, as directed on package labeling, X 6 day(s), # 21 tab(s), Refills(s) 0, Pharmacy: [facility], 158, cm, 01/22/24 9:12:00 EDT, Height/Length Dosing, 55.3, kg, 01/22/24 9:12:00 EDT, Weight Dosing 3. BMI 22.0-22.9, adult (Z68.22: Body mass index [BMI] 22.0-22.9, adult) BMI education complete Ordered: amoxicillin, 875 mg = 1 tab(s), Oral, BID, X 7 day(s), # 14 tab(s), Refills(s) 0, [facility]acy: [facility], 158, cm, 01/22/24 9:12:00 EDT, Height/Length Dosing, 55.3, kg, 01/22/24 9:12:00 EDT, Weight Dosing methylPREDNISolone, = 1 packet(s), Oral, As Directed, as directed on package labeling, X 6 day(s), # 21 tab(s), Refills(s) 0, [facility]acy: [facility], 158, cm, 01/22/24 9:12:00 EDT, Height/Length Dosing, 55.3, kg, 01/22/24 9:12:00 EDT, Weight Dosing 4. Smoker (F17.200: Nicotine dependence, unspecified, uncomplicated) consider not smoking Ordered: amoxicillin, 875 mg = 1 tab(s), Oral, BID, X 7 day(s), # 14 tab(s), Refills(s) 0, Pharmacy: [facility], 158, cm, 01/22/24 9:12:00 EDT, Height/Length Dosing, 55.3, kg, 01/22/24 9:12:00 EDT, Weight Dosing methylPREDNISolone, = 1 packet(s), Oral, As Directed, as directed on package labeling, X 6 day(s), # 21 tab(s), Refills(s) 0, Pharmacy: [facility], 158, cm, 01/22/24 9:12:00 EDT, Height/Length Dosing, 55.3, kg, 01/22/24 9:12:00 EDT, Weight Dosing Follow-up No qualifying data available Problem List/Past Medical History Ongoing At risk for sexually transmitted disease due to partner with HIV Fluid level behind tympanic membrane of right ear High risk homosexual behavior Sinusitis Historical No qualifying data Medications alprazolam 0.25 mg Tab amoxicillin 875 mg Tab, 875 mg= 1 tab(s), Oral, BID hydrOXYzine pamoate 25 mg Cap Medrol 4 mg Tab, 1 packet(s), Oral, As Directed Nexium 20 mg Cap-DR, 20 mg= 1 cap(s), Oral, Daily ondansetron 4 mg Tab, 4 mg= 1 tab(s), Oral, Daily, 1 refills Allergies No Known Allergies Social History Tobacco 10 or more cigarettes (1/2 pack or more)/day in last 30 days Tobacco Use:. Cigarettes, Household tobacco concerns: No., 01/22/2024 Family History Acute myocardial infarction: Mother and Father. Diabetes mellitus type 2: Mother. Immunizations Vaccine Date Status Comments SARS-CoV-2 (COVID-19) mRNA-1273 vaccine 09/18/2021 Recorded 2023-11-25: TPVALL influenza, unspecified formulation 07/14/2021 Recorded SARS-CoV-2 (COVID-19) mRNA-1273 vaccine 02/20/2021 Recorded 2023-11-25: TPVALL SARS-CoV-2 (COVID-19) mRNA-1273 vaccine 01/23/2021 Recorded 2023-11-25: TPVALL influenza virus vaccine, inactivated 07/26/2020 Recorded influenza virus vaccine, inactivated 07/13/2019 Recorded influenza virus vaccine, inac (more content not included)... Normal [facility] Comment on above: Result Comment: Elec tronically Signed By: Waleska Dean\.br\Date and Time Signed: 01/22/24 09:28 EDT Family Medicine Office/Clini c Noteon 12-24-2023 Family Medicine Office/Clinic Note HPI Staff Maggie is a 28 year old male presenting for 1 month follow up ALICIA 11/26/23 started cabotegravir but patient unable to get medication would like to discuss options since he couldn't get the cabotegravir Pt stopped taking desvenlafaxine due to leg weakness went to ER History of Present Illness pt presents today to discuss PrEp medication. and to go over lab work rsults Review of Systems PHQ Score Initial Depression Screen Score: 0 SCORE Physical Exam Vitals & Measurements HR: 70(Peripheral) RR: 18 BP: 110/70 SpO2: 97% HT: 62 in HT: 158 cm WT: 54.9 kg WT: 120.78 lb BMI: 21.99 General: alert, no acute distress ENMT: oral mucosa moist, no pharyngeal erythema or exudate Cardiovascular: regular rate and rhythm, normal peripheral perfusion Respiratory: Lungs CTA, respirations non labored Extremities: no deformity, no trauma Neurological: oriented x 4, LOC appropriate for age, CN II-XII intact, motor strength equal & normal bilaterally, speech normal Assessment/Plan 1. At risk for sexually transmitted disease due to partner with HIV (Z91.89: Other specified personal risk factors, not elsewhere classified) pt presents today to discuss PREp medication. pt was interested in the injectable medication. after some research it was found that in order to have injections he must take oral form of it for 30 days first. to see if he will tolerate it before it is injected into him. discussed all the side effects from these two meds. and patient and provider both feel he will not tolerate these well since he was not able to keep descovy or truvada down. pt would like to try to take zofran prior to taking descovy to see if he can keep it down. pts partner is HIV positive and they are just trying to prevent spread of virus to him. discussed possible referral to Dr. Munoz if he is unable to keep this medication down with the zofran. he has descovy at home so he will finish that before he needs refills. RTC after February 23. will repeat HIV test every 3 months while taking descovy. Ordered: ondansetron, 4 mg = 1 tab(s), Oral, Daily, 1 hour prior to taking medication, X 30 day(s), # 30 tab(s), Refills(s) 1, Pharmacy: [facility], 158, cm, 12/24/23 13:52:00 EDT, Height/Length Dosing, 54.9, kg, 12/24/23 13:52:00 EDT, Weight Dosing 2. BMI 21.0-21.9, adult (Z68.21: Body mass index [BMI] 21.0-21.9, adult) BMI education complete Ordered: cabotegravir, 30 mg = 1 tab(s), Oral, Daily, to be taken for 28 days prior to starting IM injections, # 28 tab(s), Refills(s) 0, Pharmacy: [facility], 158, cm, 11/26/23 13:08:00 EST, Height/Length Dosing, 54.3, kg, 11/26/23 13:08:00 EST, Weight Dosing ondansetron, 4 mg = 1 tab(s), Oral, Daily, 1 hour prior to taking medication, X 30 day(s), # 30 tab(s), Refills(s) 1, Pharmacy: [facility], 158, cm, 12/24/23 13:52:00 EDT, Height/Length Dosing, 54.9, kg, 12/24/23 13:52:00 EDT, Weight Dosing 3. Smoker (F17.200: Nicotine dependence, unspecified, uncomplicated) consider not smoking Ordered: cabotegravir, 30 mg = 1 tab(s), Oral, Daily, to be taken for 28 days prior to starting IM injections, # 28 tab(s), Refills(s) 0, Pharmacy: [facility], 158, cm, 11/26/23 13:08:00 EST, Height/Length Dosing, 54.3, kg, 11/26/23 13:08:00 EST, Weight Dosing ondansetron, 4 mg = 1 tab(s), Oral, Daily, 1 hour prior to taking medication, X 30 day(s), # 30 tab(s), Refills(s) 1, Pharmacy: [facility], 158, cm, 12/24/23 13:52:00 EDT, Height/Length Dosing, 54.9, kg, 12/24/23 13:52:00 EDT, Weight Dosing Follow-up No qualifying data available Problem List/Past Medical History Ongoing At risk for sexually transmitted disease due to partner with HIV High risk homosexual behavior Historical No qualifying data Medications alprazolam 0.25 mg Tab hydrOXYzine pamoate 25 mg Cap Nexium 20 mg Cap-DR, 20 mg= 1 cap(s), Oral, Daily ondansetron 4 mg Tab, 4 mg= 1 tab(s), Oral, Daily, 1 refills Allergies No Known Allergies Social History Tobacco 10 or more cigarettes (1/2 pack or more)/day in last 30 days Tobacco Use:. Cigarettes, Household tobacco concerns: No., 12/24/2023 Family History Acute myocardial infarction: Mother and Father. Diabetes mellitus type 2: Mother. Immunizations Vaccine Date Status Comments SARS-CoV-2 (COVID-19) mRNA-1273 vaccine 09/18/2021 Recorded 2023-11-25: TPVALL influenza, unspecified formulation 07/14/2021 Recorded SARS-CoV-2 (COVID-19) mRNA-1273 vaccine 02/20/2021 Recorded 2023-11-25: TPVALL SARS-CoV-2 (COVID-19) mRNA-1273 vaccine 01/23/2021 Recorded 2023-11-25: TPVALL influenza virus vaccine, inactivated 07/26/2020 Recorded influenza virus vaccine, inactivated 07/13/2019 Recorded influenza virus vaccine, inactivated 08/13/2018 Recorded measles/mumps/rubella virus vaccine 03/01/1999 Recorded DTaP, unspecified formulation 03/01/1999 Recorded measles/mumps/rubella virus vaccine 03/25/1995 Recorded Hib, unspecified formulation 03/25/1995 (more content not included)... Normal [facility] Comment on above: Result Comment: Elec tronically Signed By: Waleska Dean\.br\Date and Time Signed: 12/24/23 15:33 EDT Provider Letteron 12-17-2023 Provider Letter December 17, 2023 MAGGIE NOBLES [address] [place] [id number] : 1995 Dear Maggie , We have been trying to reach you with no success. It is important that you return our call regarding your lab results upon receiving this letter. Also, at the time of your call, please provide us with your current information. Thank you for your prompt attention to this matter. Sincerely, [place] [id number] [facility] Reminderson 12-17-2023 Reminders - From: Waleska Dean To: [facility] - Clinical; Sent: 11/28/2023 08:13:45 EST Show up: 11/28/2023 08:13:00 EST Subject: Ambulatory Reminder Due Date/Time: 11/29/2023 08:12:00 EST Let him know his liver function tests were normal and HIV was negative. [facility] does not cover the oral medication he has to take before starting the injections. Only certain compound pharmacies make it. So I will need to look into where I can order it from. Results: Date Result Name Value Ref Range 11/26/2023 13:43 ALT 13 Int._Unit/L (6 - 46) 11/26/2023 13:43 AST 17 Int._Unit/L (5 - 43) 11/26/2023 13:43 HIV Screen 4th Generation w/Rfx Non Reactive (Non Reactive - ) lvm for patient to return call please advise pt of message below LVM for patient to return call Left third message for patient to return call. Normal [facility] ED Note-Physicianon 11-29-19 ED Note-Physician [id number] Normal [facility] HIV Screen 4th Generation wR fxon 11-28-2023 HIV 1+2 Ab+HIV1 p24 Ag IA Ql Non-Reactive Invalid Interpretation Code Non Reactive [facility] Comment on above: Result Comment: HIV Negative HIV-1/HIV-2 antibodies and HIV-1 p24 antigen were NOT detected. There is no laboratory evidence of HIV infection. Performed at: [address] [id number] PhD Alexandre Campo Performed By: #### 2 [id number] #### [facility] [address] [place] [address] Marian 11-26-2023 ALT No additional P-5'-P [Catalytic activity/Vol] 13 Int._Unit/L Normal 6-46 [facility] Comment on above: Performed By: #### 2 [id number] #### [facility] [address] [place] [address] Goldie 11-26-2023 AST [Catalytic activity/Vol] 17 Int._Unit/L Normal 5-43 [facility] Comment on above: Performed By: #### 2 [id number], [id number] #### [facility] [address] [place] [address] Ambulatory Visit Summaryon 0 11-26-2023 Ambulatory Visit Summary MAGGIE NOBLES :1995 Visit Date:11/26/2023 Ambulatory Visit Instructions Your Diagnosis High risk homosexual behavior BMI 21.0-21.9, adult Smoker Your Care Team Attending Physician - Waleska Dean Primary Care Physician - Waleska Dean This Is Your Medications List alprazolam (alprazolam 0.25 mg Tab) desvenlafaxine (desvenlafaxine 25 mg oral tablet, extended release) esomeprazole (Nexium 20 mg Cap-DR) hydrOXYzine (hydrOXYzine pamoate 25 mg Cap) Discharge Vitals Heart Rate (Peripheral) 68 Respiratory Rate 18 Blood Pressure 100/64 Height 158 cm Height 62 in Weight 54.3 kg Weight 119.46 lb BMI 21.75 What to do next Scheduled Follow-Up Appointments Saturday 1:40 PM EDT With: Waleska Dean Where: [facility] Johanna Normal [facility] CHEMISTRYOrdered By: SYSTEM SYSTEM on 11-26-2023 ALT No additional P-5'-P [Catalytic activity/Vol] 13 [iU]/d Normal 6 - 46 Int._Unit/L Remisol Chem AST [Catalytic activity/Vol] 17 [iU]/d Normal 5 - 43 Int._Unit/L Remisol Chem Family Medicine Office/Clini c Noteon 11-26-2023 Family Medicine Office/Clinic Note HPI Staff Maggie is a 28 year old male presenting to [facility] care Establish Care: History: Any previous diagnosis: Anxiety/ panic attacks History of seeing any specialist: Therapist , [facility] metrology manager When was your last doctors visit: Last provider: Dr Carmona Any recent labs: 06/25/23 on patient phone Health Maintenance UTD: Colonoscopy: 2 years ago, normal Acute: Current issues/complaints: pt states partner is HIV positive and has been taking medication. Pt states has tried taking 2 different medications and had side effects, he has been looking at apretude injection. History of Present Illness pt presents today to discuss IM PrEP Review of Systems PHQ Score Initial Depression Screen Score: 0 SCORE ROS - Provider Constitutional: no fever, no chills, no sweats, no fatigue Respiratory: no shortness of breath, no cough, no orthopnea, no wheezing. Cardiovascular: no chest pain, no palpitations, no edema. Neurologic: no headache, no dizziness, no numbness, no weakness. Physical Exam Vitals & Measurements HR: 68(Peripheral) RR: 18 BP: 100/64 SpO2: 99% HT: 62 in HT: 158 cm WT: 54.3 kg WT: 119.46 lb BMI: 21.75 General: alert, no acute distress ENMT: oral mucosa moist, no pharyngeal erythema or exudate Cardiovascular: regular rate and rhythm, normal peripheral perfusion Respiratory: Lungs CTA, respirations non labored Extremities: no deformity, no trauma Neurological: oriented x 4, LOC appropriate for age, CN II-XII intact, motor strength equal & normal bilaterally, speech normal Assessment/Plan 1. High risk homosexual behavior (Z72.52: High risk homosexual behavior) pt presents today to discuss PrEP pre exposure prophylaxis for HIV. pt is in a homosexual relationship. his partner is on the oral form but he has tried descovy and truvada and both made him very sick. he would take the pills then vomit them back up. would like to look into Apretude which is an injection. HIV and liver function tests obtained in office today. will order oral cabotegravir for 28 days. will contact [facility] to see if they carry the IM version of the medication. pt will go to website for coupon because he has been told it is $4,000. After provider researches how this process works, will order oral version for 28 days then order IM injection if he is able to get coupon and can afford it. RTC 1 month. will repeat HIV test in 3 months Ordered: cabotegravir, 30 mg = 1 tab(s), Oral, Daily, to be taken for 28 days prior to starting IM injections, # 28 tab(s), Refills(s) 0, Pharmacy: [facility], 158, cm, 11/26/23 13:08:00 EST, Height/Length Dosing, 54.3, kg, 11/26/23 13:08:00 EST, Weight Dosing ALT AST HIV Screen 4th Generation wRfx Lab Specimen Collect [id number] 2. BMI 21.0-21.9, adult (Z68.21: Body mass index [BMI] 21.0-21.9, adult) BMi education complete Ordered: cabotegravir, 30 mg = 1 tab(s), Oral, Daily, to be taken for 28 days prior to starting IM injections, # 28 tab(s), Refills(s) 0, Pharmacy: [facility], 158, cm, 11/26/23 13:08:00 EST, Height/Length Dosing, 54.3, kg, 11/26/23 13:08:00 EST, Weight Dosing ALT AST HIV Screen 4th Generation wRfx Lab Specimen Collect [id number] 3. Smoker (F17.200: Nicotine dependence, unspecified, uncomplicated) consider not smoking Ordered: cabotegravir, 30 mg = 1 tab(s), Oral, Daily, to be taken for 28 days prior to starting IM injections, # 28 tab(s), Refills(s) 0, Pharmacy: [facility], 158, cm, 11/26/23 13:08:00 EST, Height/Length Dosing, 54.3, kg, 11/26/23 13:08:00 EST, Weight Dosing ALT AST HIV Screen 4th Generation wRfx Lab Specimen Collect [id number] Follow-up No qualifying data available Problem List/Past Medical History Ongoing High risk homosexual behavior Historical No qualifying data Medications alprazolam 0.25 mg Tab cabotegravir 30 mg oral tablet, 30 mg= 1 tab(s), Oral, Daily desvenlafaxine 25 mg oral tablet, extended release, 25 mg= 1 tab(s), Oral, Daily hydrOXYzine pamoate 25 mg Cap Nexium 20 mg Cap-DR, 20 mg= 1 cap(s), Oral, Daily Allergies No Known Allergies Social History Tobacco 10 or more cigarettes (1/2 pack or more)/day in last 30 days Tobacco Use:. Cigarettes, Household tobacco concerns: No., 11/26/2023 Family History Acute myocardial infarction: Mother and Father. Diabetes mellitus type 2: Mother. Immunizations Vaccine Date Status Comments SARS-CoV-2 (COVID-19) mRNA-1273 vaccine 09/18/2021 Recorded 2023-11-25: TPVALL influenza, unspecified formulation 07/14/2021 Recorded SARS-CoV-2 (COVID-19) mRNA-1273 vaccine 02/20/2021 Recorded 2023-11-25: TPVALL SARS-CoV-2 (COVID-19) mRNA-1273 vaccine 01/23/2021 Recorded 2023-11-25: TPVALL influenza virus vaccine, inactivated 07/26/2020 Recorded influenza virus vaccine, inactivated 07/13/2019 Recorded influenza virus vaccine, inactivated 08/13/2018 Recorded measles/mumps/rubella virus vaccine 03/01/1999 Recorded DTaP, unspecified formulation (more content not included)... Normal [facility] Comment on above: Result Comment: Elec tronically Signed By: Mis RUSSELL, Waleska Shields\.br\Date and Time Signed: 02/27/24 15:48 EST CULTURE URINEon 12-21-2022 CULTURE URINE Culture Observations : NO GROWTH. Normal [facility] Comment on above: Performed By: #### U RCX #### [facility] [address] [place] [address] Dr. Ash Frederick UA RANDOM W/MICROSCOPICon BACTERIA TRACE Abnormal NONE SEEN [facility] Comment on above: Performed By: #### U AMIC #### [facility] [address] [place] [address] Dr. Ash Frederick Bilirubin Ql (U) Negative Normal NEGATIVE [facility] Comment on above: Performed By: #### U AMIC #### [facility] [address] [place] [address] Dr. Ash Frederick CAST NONE SEEN Normal NONE SEEN [facility] Comment on above: Performed By: #### U AMIC #### [facility] [address] [place] [address] Dr. Ash Frederick Clarity (U) CLEAR Normal CLEAR [facility] Comment on above: Performed By: #### U AMIC #### [facility] [address] [place] [address] Dr. Ash Frederick Color (U) YELLOW Normal YELLOW [facility] Comment on above: Performed By: #### U AMIC #### [facility] [address] [place] [address] Dr. Ash Frederick Crystals LM Nom (Urine sed) NONE SEEN Normal NONE SEEN [facility] Comment on above: Performed By: #### U AMIC #### [facility] [address] [place] [address] Dr. Ash Frederick Epithelial cells LM Ql (Urine sed) FEW Abnormal NONE SEEN /RARE [facility] Comment on above: Performed By: #### U AMIC #### [facility] [address] [place] [address] Dr. Ash Frederick Glucose Ql (U) Negative Normal NEGATIVE [facility] Comment on above: Performed By: #### U AMIC #### [facility] [address] [place] [address] Dr. Ash Frederick Hemoglobin Ql (U) Negative Normal NEGATIVE [facility] Comment on above: Performed By: #### U AMIC #### [facility] [address] [place] [address] [address] Ash Frederick Ketones Ql (U) Negative Normal NEGATIVE [facility] Comment on above: Performed By: #### U AMIC #### [facility] [address] [place] [address] [address] Ash Frederick LEUKOCYTES Negative Normal NEGATIVE [facility] Comment on above: Performed By: #### U AMIC #### [facility] [address] [place] [address] [address] Ash Frederick MUCOUS TRACE Abnormal NONE SEEN [facility] Comment on above: Performed By: #### U AMIC #### [facility] [address] [place] [address] Dr. Ash Frederick Nitrite Ql (U) Negative Normal NEGATIVE [facility] Comment on above: Performed By: #### U AMIC #### [facility] [address] [place] [address] [address] Ash Frederick pH (U) 5.5 [pH] Normal 5-9 [facility] Comment on above: Performed By: #### U AMIC #### [facility] [address] [place] [address] [address] Ash Frederick RBC 2-5 Abnormal 0-[address] [facility] Comment on above: Performed By: #### U AMIC #### [facility] [address] [place] [address] [address] Ash Frederick SPEC GRAVITY >=1.030 Abnormal 1.005-<=1.025 [facility] Comment on above: Performed By: #### U AMIC #### [facility] [address] [place] [address] [address] Ash Frederick UA PROTEIN TRACE Normal NEGATIVE/ TRACE [facility] Comment on above: Performed By: #### U AMIC #### [facility] [address] [place] [address] Dr. Ash Frederick Urobilinogen Qn (U) 0.2 {Chun'U}/dL Normal 0.2 - 1. 0 [facility] Comment on above: Performed By: #### U AMIC #### [facility] [address] [place] [address] [address] Ash Frederick WBC 2-5 Abnormal NONE SEEN [facility] Comment on above: Performed By: #### U AMIC #### [facility] [address] [place] [address] [address] Ash Frederick CHLAMYDIA/GONOCOCCUS MARY KAY (SW AB/URINE/PAPon 12-14-2022 Chlamydia trachomatis, MARY KAY Negative Normal Negative [facility] Comment on above: Performed By: #### C T/NGNA #### [facility] [address] [place] [address] [address] Ash Frederick Neisseria gonorrhoeae, MARY KAY Negative Normal Negative [facility] Comment on above: Performed By: #### C T/NGNA #### [facility] [address] [place] [address] Dr. Ash Frederick HEPATITIS PANEL, ACUTEon HBsAg Screen Negative Normal Negative [facility] Comment on above: Performed By: #### H EPACUT #### [facility] [address] [place] [address] [address] Ash Frederick HCV AB Non-Reactive Normal Non Reactive [facility] Comment on above: Performed By: #### H EPACUT #### [facility] [address] [place] [address] Dr. Ash Frederick Hep A Ab, IgM Negative Normal Negative [facility] Comment on above: Performed By: #### H EPACUT #### [facility] [address] [place] [address] [address] Ash Frederick Hep B Core Ab, IgM Negative Normal Negative [facility] Comment on above: Performed By: #### H EPACUT #### [facility] [address] [place] [address] [address] Ash Frederick Interpretation: Comment Normal [facility] Comment on above: Result Comment: Not infected with HCV unless early or acute infection is suspected (which may be delayed in an immunocompromised individual), or other evidence exists to indicate HCV infection. Performed By: #### H EPACUT #### [facility] [address] [place] [address] [address] Ash Frederick HERPES SIMPLEX 1/2 IGGon HSV 1 IgG, Type Spec 34.60 index Critically high 0.00-0.[address] [facility] Comment on above: Result Comment: Nega tive <0.91 Equivocal 0.91 - 1.09 Positive >1.09 Note: Negative indicates no antibodies detected to HSV-1. Equivocal may suggest early infection. If clinically appropriate, retest at later date. Positive indicates antibodies detected to HSV-1. Performed By: #### H SV IGG #### [facility] [address] [place] [address] [address] Ash Frederick HSV 2 IgG Type Spec <0.91 Normal 0.00-0.90 [facility] Comment on above: Result Comment: Nega tive <0.91 Equivocal 0.91 - 1.09 Positive >1.09 Note: Negative indicates no HSV-2 antibodies detected. Positive indicates HSV-2 antibodies detected. Equivocal and low positive HSV-2 screens (Index 0.91-5.00) may be false positive and are reflexed to supplemental testing in accordance with CDC guidelines. Performed By: #### H SV IGG #### [facility] [address] [place] [address] Dr. Ash Frederick HIV 1 AND 2 WITH REFLEXon HIV Screen 4th Generation wRfx Non-Reactive Normal Non Reactive [facility] Comment on above: Result Comment: HIV Negative HIV-1/HIV-2 antibodies and HIV-1 p24 antigen were NOT detected. There is no laboratory evidence of HIV infection. Performed By: #### H IV12 #### [facility] [address] [place] [address] Dr. Ash Frederick RPR QUANTon 12-13-2022 Rapid Plasma Reagin, Quant Non-Reactive Normal NonRea<1:[address] [facility] Comment on above: Result Comment: Plea se Note: This test does not meet current guidelines for screening and diagnosis of syphilis. This test is intended for following treatment response in patients being treated for syphilis infection. To screen for syphilis infection, a reflex cascade that includes both RPR and a treponema-specific assay should be utilized, such as Treponema pallidum (Syphilis) Screening [place] (246206) or Rapid Plasma Reagin (RPR) Test With Reflex to Quantitative RPR and Confirmatory Treponema pallidum Antibodies ([id number]). Performed By: #### R PRQ #### [facility] [address] [place] [address] Dr. Ash Frederick CBC AUTO DIFFon 12-12-2022 BASO # 0.1 103/ul Normal 0.0-0.[address] [facility] Comment on above: Performed By: #### C BC #### [facility] [address] [place] [address] Dr. Ash Frederick Basophils/100 WBC (Bld) 1.4 % Normal 0.2-2.[address] [facility] Comment on above: Performed By: #### C BC #### [facility] [address] [place] [address] Dr. Ash Frederick EO # 0.2 103/ul Normal 0.0-0.[address] [facility] Comment on above: Performed By: #### C BC #### [facility] [address] [place] [address] Dr. Ash Frederick Eosinophils/100 WBC (Bld) 3.4 % Normal 0.9-7.[address] [facility] Comment on above: Performed By: #### C BC #### [facility] [address] [place] [address] Dr. Ash Frederick Erythrocyte distribution width (RBC) [Ratio] 12.4 % Normal 11.0-15.0 [facility] Comment on above: Performed By: #### C BC #### [facility] [address] [place] [address] Dr. Ash Frederick Hematocrit (Bld) [Volume fraction] 44.1 % Normal 42.0-54.0 [facility] Comment on above: Performed By: #### C BC #### [facility] [address] [place] [address] Dr. Ash Frederick Hemoglobin (Bld) [Mass/Vol] 15.1 g/dL Normal 14.0-18.0 [facility] Comment on above: Performed By: #### C BC #### [facility] [address] [place] [address] Dr. Ash Frederick IG # 0.01 10e3/ul Normal 0.00-0.[address] [facility] Comment on above: Performed By: #### C BC #### [facility] [address] [place] [address] Dr. Ash Frederick IG % 0.2 % Normal 0.0-0.[address] [facility] Comment on above: Performed By: #### C BC #### [facility] [address] [place] [address] Dr. Ash Frederick LYMPH # 1.5 103/ul Normal 1.2-3.[address] [facility] Comment on above: Performed By: #### C BC #### [facility] [address] [place] [address] Dr. Ahs Frederick Lymphocytes/100 WBC (Bld) 34.8 % Normal 20.5-60.[address] [facility] Comment on above: Performed By: #### C BC #### [facility] [address] [place] [address] Dr. Ash Frederick MANUAL DIFF REQ NO Normal [facility] Comment on above: Performed By: #### C BC #### [facility] [address] [place] [address] Dr. Ash Frederick MCH (RBC) [Entitic mass] 30.3 pg Normal 25.9-34.[address] [facility] Comment on above: Performed By: #### C BC #### [facility] [address] [place] [address] Dr. Ash Frederick MCHC (RBC) [Mass/Vol] 34.2 g/dL Normal 29.9-35.[address] [facility] Comment on above: Performed By: #### C BC #### [facility] [address] [place] [address] Dr. Ash Frederick MCV (RBC) [Entitic vol] 88.4 fL Normal 80.0-94.[address] [facility] Comment on above: Performed By: #### C BC #### [facility] [address] [place] [address] Dr. Ash Frederick MONO # 0.4 103/ul Normal 0.3-0.8 [facility] Comment on above: Performed By: #### C BC #### [facility] [address] [place] [address] Dr. Ash Frederick Monocytes/100 WBC (Bld) 10.1 % Normal 1.7-12.0 [facility] Comment on above: Performed By: #### C BC #### [facility] [address] [place] [address] Dr. Ash Frederick NEUT # 2.2 103/ul Normal 1.4-6.5 [facility] Comment on above: Performed By: #### C BC #### [facility] [address] [place] [address] Dr. Ash Frederick Neutrophils/100 WBC (Bld) 50.1 % Normal 43.0-75.0 [facility] Comment on above: Performed By: #### C BC #### [facility] [address] [place] [address] Dr. Ash Frederick Platelet mean volume (Bld) [Entitic vol] 8.5 fL Critically low 9.5-13.[address] [facility] Comment on above: Performed By: #### C BC #### [facility] [address] [place] [address] Dr. Ash Frederick PLT 218 103/ul Normal 150-450 [facility] Comment on above: Performed By: #### C BC #### [facility] [address] [place] [address] Dr. Ash Frederick RBC 4.99 106/ul Normal 4.70-6.10 [facility] Comment on above: Performed By: #### C BC #### [facility] [address] [place] [address] Dr. Ash Frederick WBC 4.4 103/ul Normal 4.0-11.0 [facility] Comment on above: Performed By: #### C BC #### [facility] [address] [place] [address] Dr. Ash Frederick Encounters Encounter Date Encounter Type Care Provider Facility Start: 05-28-2024 ambulatory Waleska L Mis Facility: [facility] Johanna Start: 03-23-2024 End: 03-23-2024 ambulatory Waleska L Mis Facility:[facility] Jackie misty Start: 03-23-2024 ambulatory Cher Livei ty: Pancho Start: 02-27-2024 End: 02-27-2024 Lab Drop off Waleska L Mis [facility] Start: 02-27-2024 End: 02-27-2024 ambulatory Waleska L Mis Facility:[facility] Start: 01-22-2024 End: 01-22-2024 ambulatory Waleska L Mis Facility:[facility] Jackie misty Start: 12-24-2023 End: 12-24-2023 ambulatory Waleska L Mis Facility:[facility] Jackie misty Start: 11-26-2023 ambulatory Waleska Mis Facility:[facility] Johanna Start: 11-26-2023 End: 11-26-2023 Lab Drop off Waleska L Mis [facility] Start: 11-26-2023 End: 11-26-2023 ambulatory Waleska L Mis Facility:[facility] Start: 10-15-2023 ambulatory Akbar Barriga acility:[facility] Start: 12-21-2022 End: 12-22-[address] NATALY CARMONA . Facility: Start: 12-12-2022 End: 12-13-[address] NATALY CARMONA . Facility:[facility] Immunizations Immunization Date Immunization Notes Care Provider Fa cilisarah 09-18-2021 SARS-CoV-2 (COVID-19 ) [id number] vaccine Waleska Mis [facility] Comment on above: Result Comment: 2023: TPVALL 07-14-2021 influenza, unspecifi ed formulation Waleska Mis [facility] 02-20-2021 SARS-CoV-2 (COVID-19 ) [id number]-1273 vaccine Waleska Mis [facility] Comment on above: Result Comment: 2023: TPVALL 01-23-2021 SARS-CoV-2 (COVID-19 ) mRNA-1273 vaccine Waleska Mis [facility] Comment on above: Result Comment: 2023: TPVALL 07-26-2020 influenza virus vaccine, unspecified formulation Waleska Mis [facility] 07-13-2019 influenza virus vaccine, unspecified formulation Waleska Mis [facility] 08-13-2018 influenza virus vaccine, unspecified formulation Waleska Mis [facility] 03-01-1999 DTaP, unspecified formulation Waleska Mis [facility] 03-01-1999 measles, mumps and rubella virus vaccine Waleska Mis [facility] 03-25-1995 DTaP, unspecified formulation Waleska Mis [facility] 03-25-1995 Hib, unspecified formulation Waleska Mis [facility] 03-25-1995 measles, mumps and rubella virus vaccine Waleska Mis [facility] 04-04-1994 hepatitis B vaccine, pediatric or pediatric/adolescent dosage Waleska Ims [facility] 04-04-1994 Hib, unspecified formulation Waleska Mis [facility] 1993 hepatitis B vaccine, pediatric or pediatric/adolescent dosage Waleska Mis [facility] 1993 Hib, unspecified formulation Waleska Mis [facility] 1993 hepatitis B vaccine, pediatric or pediatric/adolescent dosage Waleska Mis [facility] 1993 Hib, unspecified formulation Waleska Mis [facility] Payers Date Payer Category Payer Unknown [id number] 2023 Unknown [id number] 2023 Self-pay 2022 Medicaid [id number] 1993 Unknown [id number] 2.16.84 [id number] 1993 Unknown [id number] 2.16.84 [id number] 1993 Unknown [id number] 2.16.8 [id number] 1993 Unknown [id number] 2.16.8 [id number] 1993 Unknown [id number] 2.16.8 [id number] 1993 Unknown [id number] 2.16.8 [id number] 1993 Unknown [id number] 2.16.8 [id number] 1993 Unknown [id number] 2.16.8 [id number] 1993 Unknown [id number] 2.16.8 [id number] 1993 Unknown [id number] 2.16.8 [id number] 1993 Unknown [id number] 2.16.8 [id number] Social History Date Type Detail Facility Start: 11-26-2023 End: 02-27-2024 Tobacco smoking status Heavy tobacco smoker (finding) [facility] [place] Sex Assigned At Female [facility] Tobacco smoking status Never Pb [facility] Evaluation + Plan note Note Date & Type Note Facility Evaluation + Plan note Future Appointments Appointment Date:12/24/2023 01:40:00 PM Scheduled Provider:Waleska Dean Location:[facility] Appointment Type:FM Open Diagnostic Tests PendingHIV Screen 4th Generation wRfx 11/26/23 [facility] Evaluation + Plan note Note Date & Type Note Facility Evaluation + Plan note Future Appointments Appointment Date:05/28/2024 01:20:00 PM Scheduled Provider: Location:[facility] Appointment Type:FM Lab Draw Diagnostic Tests PendingHIV Screen 4th Generation wRfx 02/27/24 [facility] Hospital course Narrative Note Date & Type Note Facility Hospital course Narrative No data available for this section [facility] Hospital Discharge instructions Note Date & Type Note Facility Hospital Discharge instructions No data available for this section [facility] Progress note Note Date & Type Note Facility Progress note No data available for this section [facility] Summary Purpose Family History No Family History Records Found No data available for this section No Family History Records Found No data available for this section No Family History Records FoundNo Family History Records Found Advance Directives No Advanced Directives Records FoundNo Advanced Directives Records FoundNo Advanced Directives Records FoundNo Advanced Directives Records Found Additional Source Comments (unrecognized sect ion and content) No Status Records FoundNo Status Records FoundNo Status Records FoundNo Status Records Found INFORMATION SOURCE (unrecogn ized section and content) DATE CREATED AUTHOR 01/03/2023 [facility] DATE CREATED AUTHOR AUTHOR'S ORGANIZ ATION 12/19/2023 [facility] DATE CREATED AUTHOR AUTHOR'S SARAHY ATION 03/25/2024 Farooq Schmidt [facility] Patient Care team wolf ricardo (unrecognized section and content) Personnel Name: Waleska Dean Address: Address: [address] [place] [address]- Personnel Name: Waleska Dean Address: Address: [address] [place] [address]- FOR RECORDS PERTAINING TO PATIENTS WHO ARE OR HAVE BEEN ENROLLED IN A CHEMICAL DEPENDENCY/SUBSTANCEABUSE PROGRAM, SOME INFORMATION MAY BE OMITTED. This clinical summary was aggregated from multiple sources. Caution should be exercised in using it in the provision of clinical care. This summary normalizes information from multiple sources, and as a consequence, information in this document may materially change the coding, format and clinical context of patient data. In addition, data may be omitted in some cases. CLINICAL DECISIONS SHOULD BE BASED ON THE PRIMARY CLINICAL RECORDS. [facility] [employer] [facility]. provides no warranty or guarantee of the accuracy or completeness of information in this document.
[2024-04-03 11:36] LABS: Hematocrit 43.8 % (42.0-54.0); Hemoglobin 15.2 g/dL (14.0-18.0); Mean Corpuscular HGB Conc 34.7 g/dL (29.9-35.2); Mean Corpuscular Hemoglobin 30.2 pg (25.9-34.0); Mean Corpuscular Volume 87.1 fL (80.0-94.0); Mean Platelet Volume 8.3 fL (9.5-13.5); Platelet Count 178 10^3/uL (150-450); Red Blood Count 5.03 10^6/uL (4.70-6.10); Red Cell Distribution Width 12.2 % (11.0-15.0); White Blood Count 8.8 10^3/uL (4.0-11.0)
--- NOTE | 2024-04-03 11:39 | XR_ITS ---
The [address] [address] Patient Name: MAGGIE NOBLES MRN: [id number] date: 1995 Sex: M Assigned Patient Location: LAB Current Patient Location: Accession/Order Number: [id number] Exam Date: 04/03/2024 11:47 Report Date: 04/04/2024 07:28 At the request of: NATALY WHITE Procedure: XR chest 2V EXAMINATION: XR chest 2V HISTORY: Acute Bronchitis J20.9 COMPARISON: No relevant comparison available. FINDINGS: LUNGS: No significant pulmonary parenchymal abnormalities. VASCULATURE: No increased pulmonary vasculature. PLEURA: No pneumothorax, effusion, or pleural thickening. CARDIAC: No cardiomegaly or cardiac silhouette abnormality. MEDIASTINUM: No visible mass or adenopathy. BONES: No fracture or visible bone lesion. OTHER: Negative. XR/XR chest 2V IMPRESSION: 1. Normal examination. Electronically authenticated by: LUNA FERNANDEZ Date: 04/04/2024 07:28
[2024-04-03 12:04] LABS: Eosinophils Absolute Manual 0.26 10^3/uL (0.00-0.70); Monocytes Absolute Manual 0.61 10^3/uL (0.30-0.80)
[2024-04-03 12:05] LABS: Atypical Lymphocytes Abs Man 0.61
[2024-04-03 12:14] LABS: Alanine Aminotransferase 193 U/L (16-63); Albumin Globulin Ratio 1.2; Albumin Level 3.7 g/dL (3.4-5.0); Alkaline Phosphatase 129 U/L (46-116); Anion Gap 9.7; Aspartate Amino Transferase 68 U/L (15-37); BUN Creatinine Ratio 14.9; Bilirubin Total 0.9 mg/dL (0.2-1.0); Calcium 8.4 mg/dL (8.5-10.1); Carbon Dioxide 30.1 mmol/L (21.0-32.0); Chloride 102 mmol/L (98-107); Estimated GFR (African America >60 (>=60); Estimated GFR (Non-African Ame >60 (>=60); Globulin 3.2 g/dL; Glucose 98 mg/dL (74-106); Potassium 3.8 mmol/L (3.5-5.1); Sodium 138 mmol/L (136-145); Total Protein 6.9 g/dL (6.4-8.2)
[2024-04-05 09:07] LABS: HIV Ab/p24 Ag Screen Non Reactive (Non Reactive)
== END 2024-04-03 11:11 | disposition home or self-care (01) ==
LOC: LAB 11:12
PROVIDERS: PCP Family Medicine; Visit Provider Family Medicine
DX: J20.9 Acute bronchitis, unspecified (principal)
CPT/HCPCS: 36415; 71046; 80053; 85007; 85027; 87389

== ENCOUNTER 2024-04-07 08:28 | Outpatient (OUT) | payer BC, SELFPAY ==
--- NOTE | 2024-04-07 08:33 | US_ITS ---
The [address] [address] Patient Name: MAGGIE NOBLES MRN: [id number] date: 1995 Sex: M Assigned Patient Location: US Current Patient Location: US Accession/Order Number: [id number] Exam Date: 04/07/2024 08:35 Report Date: 04/07/2024 09:33 At the request of: NATALY WHITE Procedure: US right upper quadrant EXAM: US right upper quadrant HISTORY: Elevated Liver Function Testing R79.89 COMPARISON: None. TECHNIQUE: Grayscale, color and Doppler FINDINGS: The liver is normal in size, contour and echotexture. No focal hepatic mass. Hepatopedal flow in the main portal vein. 2 focal hypoechogenic soft tissue lesions are identified at the fani hepatis measuring 1.8 and 1.9 cm in size possibly lymph nodes. The gallbladder is normal in size. The wall measures 1.6 mm. The common bile duct measures 1.1 mm. Negative sonographic Hutton's sign. 2 mm echogenic focus noted along the posterior wall, adherent stone is suspected. No pericholecystic fluid The visualized pancreas is normal The right kidney is normal measuring 11.3 x 5.3 x 3.2 cm. Small pericardial effusion US/US right upper quadrant IMPRESSION: 2 lesions at the fani hepatis possibly lymph nodes 2 mm gallstone without evidence of acute cholecystitis Small pericardial effusion Electronically authenticated by: DEVON GRIGGS Date: 04/07/2024 09:33
[2024-04-08 08:12] LABS: HBsAg Screen Negative (Negative); HCV Ab Non Reactive (Non Reactive); Hep A Ab, IgM Negative (Negative); Hep B Core Ab, IgM Negative (Negative)
== END 2024-04-07 08:29 | disposition home or self-care (01) ==
LOC: US 08:29
PROVIDERS: PCP Family Medicine; Visit Provider Family Medicine
DX: R79.89 Other specified abnormal findings of blood chemistry (principal); K80.20 Calculus of gallbladder without cholecystitis without obstruction; I31.39 Other pericardial effusion (noninflammatory)
CPT/HCPCS: 36415; 76705; 80074

== ENCOUNTER 2024-04-09 20:53 | Emergency (ER) | payer BC, SELFPAY ==
[2024-04-09 20:58] VITALS: BP 133/87; PULSE 114; TEMP 36.6; O2SAT 96; BMI 18.8
--- NOTE | 2024-04-09 21:02 | PC.NURSE ---
Right sided flank pain
--- NOTE | 2024-04-09 21:06 | CT_ITS ---
[address] [address] Patient Name: MAGGIE NOBLES MRN: [id number] date: 1995 Sex: M Assigned Patient Location: ER Current Patient Location: [facility] Accession/Order Number: [id number] Exam Date: 04/09/2024 21:12 Report Date: 04/09/2024 22:06 At the request of: WADE ARAUJO Procedure: CT abdomen pelvis wo con EXAM: CT abdomen pelvis wo con REASON FOR EXAM: Male, 28 years, Right flank pain. TECHNIQUE: Computed tomography of the abdomen and pelvis is performed in the axial projection from the lung bases to the pubic symphysis. Sagittal and coronal reconstructed images are performed. Dose reduction techniques were achieved by using automated exposure control and/or adjustment of mA and/or KVP according to patient size and/or use of iterative reconstruction technique. Study was performed without IV contrast. Study was performed without oral contrast. COMPARISON: Ultrasound 04/07/2024 FINDINGS: Lung bases: The lung bases are clear. There is no pleural effusion. The visualized portions of the heart are unremarkable. Evaluation of the solid abdominal organs is limited in the absence of intravenous contrast. Liver: The liver is normal. Gallbladder: The gallbladder is contracted. Spleen: The spleen is normal. Pancreas: The pancreas is normal. Adrenal glands: The adrenal glands are normal bilaterally. Right kidney: The kidney is normal in size. There is no renal calculus or hydronephrosis. Left kidney: The kidney is normal in size. There is no renal calculus or hydronephrosis. Stomach: The stomach is normal. Small bowel: The small bowel is normal. Large bowel: There is stool throughout the colon suggesting constipation. Appendix: The appendix is visualized, and is normal. Aorta: The aorta is normal. IVC: The IVC is normal. Retroperitoneum: Normal retroperitoneum. Bladder: The bladder is normal. Pelvic organs: The prostate gland appears somewhat enlarged. Abdominal wall: Normal abdominal wall. Osseous structures: Normal bony structures. CT/CT abdomen pelvis wo con IMPRESSION: No bowel obstruction or acute renal pathology. Stool throughout the colon consistent with constipation. The prostate gland appears enlarged. Electronically authenticated by: ADAMA MEJIAS Date: 04/09/2024 22:06
--- NOTE | 2024-04-09 21:07 | ED_ITS ---
Documented by User: KIRT Finch 04/09/24 21:38 HPI HPI - General Adult General Chief complaint: Urogenital-Male Stated complaint: FLANK PAIN, FEVER, RASH Time Seen by Provider: 04/09/24 21:00 Source: patient Mode of arrival: walk-in Limitations: no limitations History of Present Illness HPI narrative: Patient is a 28-year-old male who presents to the emergency department for the evaluation of right flank pain. He states he noticed the pain earlier today and it has gotten gradually worse in the right flank. No radiation to the abdomen. He reports a temperature of 101.1 Fahrenheit about 3 hours ago. He did not take any Motrin or Tylenol. He arrives afebrile to the ER. He denies urinary symptoms. He denies the symptoms previously. No previous abdominal surgeries. Related Data Home Medications ?Medication ?Instructions ?Recorded ?Confirmed alprazolam 0.25 mg tablet 0.5 mg PO DAILY 11/29/23 11/29/23 desvenlafaxine succinate 25 mg 25 mg PO Q24H 11/29/23 11/29/23 tablet,extended release 24 hr Allergies Allergy/AdvReac Type Severity Reaction Status Date / Time No Known Drug Allergies Allergy Verified 04/09/24 20:58 Opioid HPI Opioid Management Most Recent Opioid Data: No Data to Display Review of Systems ROS Constitutional Denies: fever or chills Ears, nose, mouth, and throat Denies: throat pain Cardiovascular Denies: chest pain Respiratory Denies: shortness of breath Gastrointestinal Denies: abdominal pain, nausea or vomiting Musculoskeletal Reports: back pain; Denies: neck pain Neurological Denies: headache Hematologic/Lymphatic Denies: easy bruising or easy bleeding PFSH PFSH Social History Smoking status: Current every day smoker Exam Narrative Exam Narrative: Gen.: Awake, alert, in no distress Head: Normocephalic, atraumatic ENT: Moist mucous membranes Respiratory: No respiratory distress, lungs clear bilaterally Cardio: Regular rate and rhythm Gastrointestinal: Abdomen is soft, nondistended and Mildly tender in the right lower quadrant with no McBurney's point tenderness. No guarding or rebound Back: CVA tenderness on the right Extremities: Moves extremities equally Psych: Normal mood and affect Neuro: No focal neuro deficit Skin: Warm, dry, intact Constitutional Vital Signs, click to edit/add: Last Vital Signs Temp 97.9 F 04/09/24 20:58 Pulse 114 H 04/09/24 20:58 Resp 18 04/09/24 20:58 BP 133/87 04/09/24 20:58 Pulse Ox 96 04/09/24 20:58 O2 Del Method Room Air 04/09/24 20:58 Course Vital Signs Vital signs: Vital Signs Temperature 97.9 F 04/09/24 20:58 Pulse Rate 114 H 04/09/24 20:58 Respiratory Rate 18 04/09/24 20:58 Blood Pressure 133/87 04/09/24 20:58 Pulse Oximetry 96 04/09/24 20:58 Oxygen Delivery Method Room Air 04/09/24 20:58 Temperature 97.9 F 04/09/24 20:58 Pulse Rate 114 H 04/09/24 20:58 Respiratory Rate 18 04/09/24 20:58 Blood Pressure 133/87 04/09/24 20:58 Pulse Oximetry 96 04/09/24 20:58 Oxygen Delivery Method Room Air 04/09/24 20:58 Medical Decision Making MDM Narrative Medical decision making narrative: 2136: After my evaluation, patient was ordered to have pain medication, Toradol, Zofran, IV fluids. Labs, urine specimen obtained and the patient was sent for CT of the abdomen and pelvis without contrast. Case is turned over to attending physician at this time for disposition. SHARED APC VISIT, PHYSICIAN ATTESTATION: [id number] I performed a substantive part of the MDM during the patient?s E/M visit. I personally evaluated and examined the patient. I personally made or approved the documented management plan and acknowledge its risk of complications. Medical Records Medical records reviewed: Yes I reviewed the patient's medical records Lab Data Lab results reviewed: Yes I reviewed the patient's lab results Labs: Lab Results 04/09/24 04/09/24 Range/Units 21:10 21:11 WBC 8.9 (4.0-11.0) 10^3/uL RBC 4.85 (4.70-6.10) 10^6/uL Hgb 14.4 (14.0-18.0) g/dL Hct 42.5 (42.0-54.0) % MCV 87.6 (80.0-94.0) fL MCH 29.7 (25.9-34.0) pg MCHC 33.9 (29.9-35.2) g/dL RDW 12.3 (11.0-15.0) % Plt Count 240 (150-450) 10^3/uL MPV 8.4 L (9.5-13.5) fL Seg Neuts % (Manual) 27.0 Band Neutrophils % 1.0 (0-5) % Lymphocytes % (Manual) 35.0 (20.5-60.0) % Atypical Lymphs % (Man) 27.0 % Monocytes % (Manual) 6.0 (1.7-12.0) % Eosinophils % (Manual) 3.0 (0.9-7.0) % Basophils % (Manual) 1.0 (0.2-2.0) % Neutrophils # (Manual) 2.40 (1.4-6.5) 10^3/uL Band Neutrophils # 0.1 (0.0-0.3) 10^3/uL Lymphocytes # (Manual) 3.11 (1.20-3.80) 10^3/uL Abs Atypical Lymphs Man 2.40 Monocytes # (Manual) 0.53 (0.30-0.80) 10^3/uL Eosinophils # (Manual) 0.26 (0.00-0.70) 10^3/uL Basophils # (Manual) 0.08 (0.00-0.10) 10^3/uL Sodium 134 L (136-145) mmol/L Potassium 3.6 (3.5-5.1) mmol/L Chloride 101 (98-107) mmol/L Carbon Dioxide 27.3 (21.0-32.0) mmol/L Anion Gap 9.3 BUN 11.0 (7.0-18.0) mg/dL Creatinine 0.83 (0.70-1.30) mg/dL Est GFR ( Amer) >60 (>=60) Est GFR (Non-Af Amer) >60 (>=60) BUN/Creatinine Ratio 13.3 Glucose 102 (74-106) mg/dL Lactate 1.0 (0.4-2.0) mmol/L Calcium 8.5 (8.5-10.1) mg/dL Total Bilirubin 0.9 (0.2-1.0) mg/dL AST 143 H (15-37) U/L ALT 469 H (16-63) U/L Alkaline Phosphatase 149 H (46-116) U/L Total Protein 7.1 (6.4-8.2) g/dL Albumin 3.8 (3.4-5.0) g/dL Globulin 3.3 g/dL Albumin/Globulin Ratio 1.2 Lipase 50.0 (16.0-77.0) U/L Urine Color Lt. yellow (YELLOW) Urine Clarity Clear (CLEAR) Urine pH 6.0 (5.0-9.0) Ur Specific [place] 1.010 (1.005-1.025) Urine Protein Negative (NEG/TRACE) mg/dL Urine Glucose (UA) Negative (NEGATIVE) mg/dL Urine Ketones Negative (NEGATIVE) mg/dL Urine Occult Blood Negative (NEGATIVE) Urine Nitrite Negative (NEGATIVE) Urine Bilirubin Negative (NEGATIVE) Urine Urobilinogen 0.2 (0.2-1.0) EU/dL Ur Leukocyte Esterase Negative (NEGATIVE) Discharge Plan Discharge Stand Alone Forms: Portal Instructions Chief Complaint: Urogenital-Male Clinical Impression: Right flank pain Patient Disposition: Home, Self-Care Prescriptions / Home Meds: No Action desvenlafaxine succinate 25 mg tablet extended release 24 hr 25 mg PO Q24H alprazolam 0.25 mg tablet 0.5 mg PO DAILY Print Language: Sinhala Instructions: Flank Pain (ED) Additional Instructions: follow up with Dr Carmona for recheck. Referrals: Nolan Carmona MD [Primary Care Provider] - 1 week Documented by User: Leopoldo Hooper MD 04/09/24 22:52 HPI HPI - General Adult General Chief complaint: Urogenital-Male Stated complaint: FLANK PAIN, FEVER, RASH Time Seen by Provider: 04/09/24 21:00 Related Data Home Medications ?Medication ?Instructions ?Recorded ?Confirmed alprazolam 0.25 mg tablet 0.5 mg PO DAILY 11/29/23 11/29/23 desvenlafaxine succinate 25 mg 25 mg PO Q24H 11/29/23 11/29/23 tablet,extended release 24 hr Allergies Allergy/AdvReac Type Severity Reaction Status Date / Time No Known Drug Allergies Allergy Verified 04/09/24 20:58 Opioid HPI Opioid Management Most Recent Opioid Data: No Data to Display PFSH PFSH Social History Smoking status: Current every day smoker Exam Constitutional Vital Signs, click to edit/add: Last Vital Signs Temp 97.9 F 04/09/24 20:58 Pulse 114 H 04/09/24 20:58 Resp 18 04/09/24 20:58 BP 133/87 04/09/24 20:58 Pulse Ox 96 04/09/24 20:58 O2 Del Method Room Air 04/09/24 20:58 Course Vital Signs Vital signs: Vital Signs Temperature 97.9 F 04/09/24 20:58 Pulse Rate 114 H 04/09/24 20:58 Respiratory Rate 18 04/09/24 20:58 Blood Pressure 133/87 04/09/24 20:58 Pulse Oximetry 96 04/09/24 20:58 Oxygen Delivery Method Room Air 04/09/24 20:58 Temperature 97.9 F 04/09/24 20:58 Pulse Rate 114 H 04/09/24 20:58 Respiratory Rate 18 04/09/24 20:58 Blood Pressure 133/87 04/09/24 20:58 Pulse Oximetry 96 04/09/24 20:58 Oxygen Delivery Method Room Air 04/09/24 20:58 Medical Decision Making [facility] Narrative Medical decision making narrative: 2136: After my evaluation, patient was ordered to have pain medication, Toradol, Zofran, IV fluids. Labs, urine specimen obtained and the patient was sent for CT of the abdomen and pelvis without contrast. Case is turned over to attending physician at this time for disposition. care transferred at change of shift. CT pending. CT with finding of constipation and contracted gallbladder. US 04/07/24 with finding of 2mm gallstone. no evidence of cholecystitis. Patient found to have elevated LFTs. They are elevated again today. He is complaining of pain R CVA. CT without stone and UA clear. Patient reports respiratory symptoms that have been treated with several courses of antibiotics and cxray is clear. Patient is advised he likely has a viral illness to explain his symptoms and recommend he follow up with his doctor for re eval and workup as an out patient SHARED APC VISIT, PHYSICIAN ATTESTATION: [id number] I performed a substantive part of the MDM during the patient?s E/M visit. I personally evaluated and examined the patient. I personally made or approved the documented management plan and acknowledge its risk of complications. Lab Data Labs: Lab Results 04/09/24 04/09/24 Range/Units 21:10 21:11 WBC 8.9 (4.0-11.0) 10^3/uL RBC 4.85 (4.70-6.10) 10^6/uL Hgb 14.4 (14.0-18.0) g/dL Hct 42.5 (42.0-54.0) % MCV 87.6 (80.0-94.0) fL MCH 29.7 (25.9-34.0) pg MCHC 33.9 (29.9-35.2) g/dL RDW 12.3 (11.0-15.0) % Plt Count 240 (150-450) 10^3/uL MPV 8.4 L (9.5-13.5) fL Seg Neuts % (Manual) 27.0 Band Neutrophils % 1.0 (0-5) % Lymphocytes % (Manual) 35.0 (20.5-60.0) % Atypical Lymphs % (Man) 27.0 % Monocytes % (Manual) 6.0 (1.7-12.0) % Eosinophils % (Manual) 3.0 (0.9-7.0) % Basophils % (Manual) 1.0 (0.2-2.0) % Neutrophils # (Manual) 2.40 (1.4-6.5) 10^3/uL Band Neutrophils # 0.1 (0.0-0.3) 10^3/uL Lymphocytes # (Manual) 3.11 (1.20-3.80) 10^3/uL Abs Atypical Lymphs Man 2.40 Monocytes # (Manual) 0.53 (0.30-0.80) 10^3/uL Eosinophils # (Manual) 0.26 (0.00-0.70) 10^3/uL Basophils # (Manual) 0.08 (0.00-0.10) 10^3/uL Sodium 134 L (136-145) mmol/L Potassium 3.6 (3.5-5.1) mmol/L Chloride 101 (98-107) mmol/L Carbon Dioxide 27.3 (21.0-32.0) mmol/L Anion Gap 9.3 BUN 11.0 (7.0-18.0) mg/dL Creatinine 0.83 (0.70-1.30) mg/dL Est GFR ( Amer) >60 (>=60) Est GFR (Non-Af Amer) >60 (>=60) BUN/Creatinine Ratio 13.3 Glucose 102 (74-106) mg/dL Lactate 1.0 (0.4-2.0) mmol/L Calcium 8.5 (8.5-10.1) mg/dL Total Bilirubin 0.9 (0.2-1.0) mg/dL AST 143 H (15-37) U/L ALT 469 H (16-63) U/L Alkaline Phosphatase 149 H (46-116) U/L Total Protein 7.1 (6.4-8.2) g/dL Albumin 3.8 (3.4-5.0) g/dL Globulin 3.3 g/dL Albumin/Globulin Ratio 1.2 Lipase 50.0 (16.0-77.0) U/L Urine Color Lt. yellow (YELLOW) Urine Clarity Clear (CLEAR) Urine pH 6.0 (5.0-9.0) Ur Specific [place] 1.010 (1.005-1.025) Urine Protein Negative (NEG/TRACE) mg/dL Urine Glucose (UA) Negative (NEGATIVE) mg/dL Urine Ketones Negative (NEGATIVE) mg/dL Urine Occult Blood Negative (NEGATIVE) Urine Nitrite Negative (NEGATIVE) Urine Bilirubin Negative (NEGATIVE) Urine Urobilinogen 0.2 (0.2-1.0) EU/dL Ur Leukocyte Esterase Negative (NEGATIVE) Discharge Plan Discharge Stand Alone Forms: Portal Instructions Chief Complaint: Urogenital-Male Clinical Impression: Right flank pain Patient Disposition: Home, Self-Care Prescriptions / Home Meds: No Action desvenlafaxine succinate 25 mg tablet extended release 24 hr 25 mg PO Q24H alprazolam 0.25 mg tablet 0.5 mg PO DAILY Print Language: Sinhala Instructions: Flank Pain (ED) Additional Instructions: follow up with Dr Carmona for recheck. Referrals: Nolan Carmona MD [Primary Care Provider] - 1 week
[2024-04-09 21:34] LABS: Hematocrit 42.5 % (42.0-54.0); Hemoglobin 14.4 g/dL (14.0-18.0); Mean Corpuscular HGB Conc 33.9 g/dL (29.9-35.2); Mean Corpuscular Hemoglobin 29.7 pg (25.9-34.0); Mean Corpuscular Volume 87.6 fL (80.0-94.0); Mean Platelet Volume 8.4 fL (9.5-13.5); Platelet Count 240 10^3/uL (150-450); Red Blood Count 4.85 10^6/uL (4.70-6.10); Red Cell Distribution Width 12.3 % (11.0-15.0); White Blood Count 8.9 10^3/uL (4.0-11.0)
[2024-04-09] MEDS: 0.9 % SODIUM CHLORIDE 1,000 ML 999 ML IV (21:36)
[2024-04-09 21:37] LABS: Bilirubin Urine NEGATIVE (NEGATIVE); Blood Urine NEGATIVE (NEGATIVE); Clarity Urine CLEAR (CLEAR); Color Urine LT. YELLOW (YELLOW); Glucose Urine UA NEGATIVE (NEGATIVE); Ketones Urine NEGATIVE (NEGATIVE); Leukocyte Esterase Urine NEGATIVE (NEGATIVE); Nitrite Urine NEGATIVE (NEGATIVE); Protein Urine NEGATIVE (NEG/TRACE); Urobilinogen Urine 0.2 EU/dL (0.2-1.0)
[2024-04-09] MEDS: ONDANSETRON PF 4 MG/2 ML VIAL IV (21:37)
[2024-04-09 21:46] LABS: Alanine Aminotransferase 469 U/L (16-63); Albumin Globulin Ratio 1.2; Albumin Level 3.8 g/dL (3.4-5.0); Alkaline Phosphatase 149 U/L (46-116); Anion Gap 9.3; Aspartate Amino Transferase 143 U/L (15-37); BUN Creatinine Ratio 13.3; Bilirubin Total 0.9 mg/dL (0.2-1.0); Calcium 8.5 mg/dL (8.5-10.1); Carbon Dioxide 27.3 mmol/L (21.0-32.0); Chloride 101 mmol/L (98-107); Estimated GFR (African America >60 (>=60); Estimated GFR (Non-African Ame >60 (>=60); Globulin 3.3 g/dL; Glucose 102 mg/dL (74-106); Potassium 3.6 mmol/L (3.5-5.1); Sodium 134 mmol/L (136-145); Total Protein 7.1 g/dL (6.4-8.2)
[2024-04-09 21:48] LABS: Urine Microscopic Indicated NO
[2024-04-09 22:37] LABS: Band Neutrophils Absolute 0.1 10^3/uL (0.0-0.3)
[2024-04-09 22:38] LABS: Basophils Abs Manual 0.08 10^3/uL (0.00-0.10); Eosinophils Absolute Manual 0.26 10^3/uL (0.00-0.70); Lymphocytes Absolute Manual 3.11 10^3/uL (1.20-3.80); Monocytes Absolute Manual 0.53 10^3/uL (0.30-0.80)
== END 2024-04-09 23:11 | disposition home or self-care (01) ==
PROVIDERS: Physician Assistant; Emergency Provider Internal Medicine; PCP Family Medicine
DX: R10.9 Unspecified abdominal pain (principal); F17.200 Nicotine dependence, unspecified, uncomplicated
CPT/HCPCS: 36415; 74176; 80053; 81003; 83605; 83690; 85007; 85027; 96374; 99285; J2405

== ENCOUNTER 2024-04-13 09:40 | Outpatient (OUT) | payer BC, SELFPAY ==
[2024-04-13 10:16] LABS: Basophils Absolute Auto 0.1 10^3/uL (0.0-0.1); Basophils Percent Auto 1.3 % (0.2-2.0); Eosinophils Absolute Auto 0.4 10^3/uL (0.0-0.7); Eosinophils Percent Auto 6.7 % (0.9-7.0); Hematocrit 44.8 % (42.0-54.0); Hemoglobin 14.8 g/dL (14.0-18.0); Immature Granulocytes Abs Auto 0.01 10^3/uL (0.00-0.03); Immature Granulocytes Pct Auto 0.2 % (0.0-0.5); Lymphocytes Absolute Auto 3.5 10^3/uL (1.2-3.8); Lymphocytes Percent Auto 62.9 % (20.5-60.0); Mean Corpuscular Hemoglobin 29.7 pg (25.9-34.0); Mean Platelet Volume 8.2 fL (9.5-13.5); Monocytes Absolute Auto 0.5 10^3/uL (0.3-0.8); Monocytes Percent Auto 9.4 % (1.7-12.0); Neutrophils Absolute Auto 1.1 10^3/uL (1.4-6.5); Neutrophils Percent Auto 19.5 % (43.0-75.0); Platelet Count 248 10^3/uL (150-450); Red Blood Count 4.98 10^6/uL (4.70-6.10); Red Cell Distribution Width 12.9 % (11.0-15.0); White Blood Count 5.5 10^3/uL (4.0-11.0)
[2024-04-13 10:42] LABS: Alanine Aminotransferase 379 U/L (16-63); Albumin Globulin Ratio 1.2; Albumin Level 3.9 g/dL (3.4-5.0); Alkaline Phosphatase 141 U/L (46-116); Anion Gap 10.4; Aspartate Amino Transferase 97 U/L (15-37); BUN Creatinine Ratio 10.8; Bilirubin Total 0.8 mg/dL (0.2-1.0); C Reactive Protein <0.50 mg/dL (<=0.50); Calcium 8.5 mg/dL (8.5-10.1); Carbon Dioxide 30.7 mmol/L (21.0-32.0); Chloride 103 mmol/L (98-107); Estimated GFR (African America >60 (>=60); Estimated GFR (Non-African Ame >60 (>=60); Globulin 3.3 g/dL; Glucose 84 mg/dL (74-106); Potassium 4.1 mmol/L (3.5-5.1); Sodium 140 mmol/L (136-145); Total Protein 7.2 g/dL (6.4-8.2)
[2024-04-13 11:01] LABS: Erythrocyte Sedimentation Rate 11 mm/hr (<=15)
[2024-04-13 11:48] LABS: Internal Control Within Normal Limits; Mono Screen NEGATIVE (NEGATIVE)
[2024-04-14 15:09] LABS: EBV Ab VCA, IgM >160.0 U/mL (0.0-35.9)
== END 2024-04-13 09:41 | disposition home or self-care (01) ==
LOC: LAB 09:41
PROVIDERS: PCP Family Medicine; Visit Provider Family Medicine
DX: K75.9 Inflammatory liver disease, unspecified (principal)
CPT/HCPCS: 36415; 80053; 85025; 85652; 86140; 86308; 86664; 86665

== ENCOUNTER 2024-06-26 11:06 | Outpatient (OUT) | payer BC, SELFPAY ==
--- OUTSIDE RECORDS SUMMARY | 2024-06-26 11:12 | XMS_ITS | CCD ---
Author Organization [facility] Care Team Providers Care Braider Tender Name Role Phone CINDY ., DR INGRAM [...] Admitting Unavailab Nataly Matthews Primary Care Unavailable Mis, Waleska Shields Attending Unavailable Mis, Waleska Shields Attending Unavailable Mis, Waleska Shields Attending Unavailable Mis, Waleska Shields Attending Unavailable Mis, Waleska Shields Attending Unavailable Mis, Waleska Shields Admitting Unavailable Mis, Waleska Shields Attending Unavailable Mis, Waleska Shields Admitting Unavailable Mis, Waleska Shields Attending Unavailable Cher Delcid Attending Unavailable NILL, Fredrick Tom Attending Unavailable Nataly Carmona Referring Unavailable Mis, DREW Shields Attending Unavailable Medications Current Medications Medication Drug Class(es) Dates Sig (Normalized) Sig (Original) ALPRAZolam 0.25 mg oral tablet (3 sources) Benzodiazepine Start: 11-26-2023 alprazolam 0.25 mg [...] injections, # 28 tab(s), Refills(s) 0, Pharmacy: [facility] 1155, 158, cm, 11/26/23 13:08:00 EST, Height/Length Dosing, 54.3, kg, 11/26/23 13:08:00 EST, Weight Dosing Start Date: 11/26/23 Status: Ordered cetirizine hydrochloride 10 mg oral tablet (1 source) Histamine-1 Receptor Antagonist Start: 04-13-2024 take 1 tablet by mouth once daily cetirizine 10 mg Tab 10 mg = 1 tab(s), Oral, Daily, Refills(s) 0 Start Date: 04/13/24 Status: Ordered 24 hr desvenlafaxine succinate 25 mg extended release oral tablet (1 source) Serotonin and Norepinephrine Reuptake Inhibitor Start: 11-26-2023 take 1 tablet by mouth once daily desvenlafaxine 25 mg oral tablet, extended release 25 mg = 1 tab(s), Oral, Daily, Refills(s) 0 Start Date: 11/26/23 Status: Ordered esomeprazole 20 mg delayed release oral capsule (3 sources) Proton Pump Inhibitor Start: 11-26-2023 take 1 capsule by mouth once daily Nexium 20 mg Cap-DR 20 mg = 1 cap(s), Oral, Daily, Refills(s) 0 Start Date: 11/26/23 Status: Ordered montelukast 10 mg oral tablet (2 sources) Leukotriene Receptor Antagonist Start: 02-27-2024 take 1 tablet by mouth once daily in the evening Singulair 10 mg Tab 10 mg = 1 tab(s), Oral, qPM, # 30 tab(s), Refills(s) 0, Pharmacy: [facility] 1155, 167, cm, 02/27/24 13:44:00 EDT, Height/Length Dosing, 54, kg, 02/27/24 13:44:00 EDT, Weight Dosing Start Date: 02/27/24 Status: Ordered Completed/Discontinued Medications Medication Drug Class(es) Dates Sig (Normalized) Sig (Original) hydrOXYzine pamoate 25 mg oral capsule (3 sources) Antihistamine Start: 11-26-2023 hydrOXYzine pamoate 25 mg Cap 90 EA, 0 Refill(s), TAKE ONE (1) CAPSULE BY MOUTH THREE TIMES PER DAY NEEDED FOR ANXIETY, Refills(s) 0 Start Date: 11/26/23 Status: Ordered Problems Problem Classification Problem Date Documented Da te Episodic/Chronic Anxiety disorders (1 source) Anxiety 04-13-2024 Chronic Biliary tract disease (1 source) Biliary calculus 04-13-2024 Episodic Genitourinary symptoms and ill-defined conditions (4 sources) Dysuria; Translations: [DYSURIA] Onset: 12-21-2022 Episodic Other injuries and conditions due to external causes (4 sources) Other specified effects of external causes, initial encounter; Translations: [OTH SPEC EFFECTS EXT CAUSES INITIAL] Onset: 12-12-2022 Episodic Other nutritional; endocrine; and metabolic disorders (1 source) Body mass index less than 20 03-23-2024 Episodic Other nutritional; endocrine; and metabolic disorders (1 source) Underweight 03-23-2024 Episodic Other upper respiratory disease (2 sources) Seasonal allergy 02-27-2024 Chronic Other upper respiratory infections (2 sources) Sinusitis 01-22-2024 Chronic Otitis media and related conditions (2 sources) Finding of fluid behind tympanic membrane 01-22-2024 Episodic Residual codes; unclassified (3 sources) High risk homosexual behavior 11-26-2023 Episodic Residual codes; unclassified (2 sources) At risk of sexually transmitted infection 12-24-2023 Episodic Substance-related disorders (2 sources) Smoker 02-27-2024 Chronic Unclassified (1 source) Liver function test increased 04-13-2024 Results Test Name Value Interpretation Reference Range Facility [facility] 03-24-2024 Consent [id number]. 00TIFF Normal [facility] Ambulatory Visit Summaryon 0 03-23-2024 Ambulatory Visit Summary MAGGIE NOBLES :1995 Visit Date:03/23/2024 Ambulatory Visit Instructions Your [...] Follow-Up Appointments 2023 1:20 PM EDT Where: [facility] Medicine [place] Normal [facility] Office/Clini c Noteon 03-23-2024 Family Medicine Office/Clinic [...] Hib, unspecified formulation 1995 Recorded Normal [facility] Comment on above: Result Comment: Elec tronically Signed By: Waleska Dean.br\Date and Time Signed: 03/23/24 15:45 EDT Patient [...] numbers. This can be done either in Pry[place]ig [place] or metric measurements. Note that charts and online BMI calculators are available to help you find your BMI quickly and easily without having to do these calculations yourself. To calculate your BMI in [place] measurements: 1. Measure your weight in [...] for Disease Control and Prevention: www.cdc.gov ? [place] Heart Association: www.heart.org ? National Heart, Lung, and Blood Ethel: www.nhlbi.nih.gov Summary ? Body mass index (BMI) is a number that is calculated from a person's weight and height. ? BMI may help estimate how much of a person's weight is composed of fat. BMI can help identify those who may be at higher risk for certain medical problems. ? BMI can be measured using Prydeinig measurements or metric measurements. ? BMI charts are used to identify whether you are underweight, normal weight, overweight, or obese. This information is not intended to replace advice given to you by your health care provider. Make sure you discuss any questions you have with your health care provider. Document Revised: 06/08/2020 Document Reviewed: 04/15/2020 [email or web address] Patient Education ? 2022 Soum. Normal [facility] HIV Screen 4th Generation wR fxon 02-29-2024 HIV 1+2 Ab+HIV1 p24 Ag IA Ql Non-Reactive Invalid Interpretation Code Non Reactive [facility] Comment on above: Result Comment: HIV Negative HIV-1/HIV-2 antibodies and HIV-1 p24 antigen were NOT detected. There is no laboratory evidence of HIV infection. Performed at: [facility] [id number] PhD Alexandre Campo Performed By: #### 9 [id number] #### [facility] [address] [place] [address] Family Medicine Office/Clini c Noteon 02-27-2024 Family [...] Hib, unspecified formulation 1995 Recorded Normal [facility] Comment on above: Result Comment: Elec tronically Signed By: Mis RUSSELL, Waleska Shields\.br\Date and Time Signed: 02/27/24 14:04 EDT Ambulatory [...] 1:40 PM EDT With: Waleska Dean Where: [facility] [place] Normal [facility] Family Medicine Office/Clini c Noteon 01-22-2024 Family Medicine Office/Clinic Note HPI Staff Maggie [...] # 21 tab(s), Refills(s) 0, Pharmacy: [email or web address], 158, cm, 01/22/24 9:12:00 EDT, Height/Length Dosing, 55.3, kg, 01/22/24 9:12:00 EDT, Weight Dosing 2. Fluid level behind tympanic membrane of right ear (H65.91: Unspecified nonsuppurative otitis media, right ear) right TM full of clear fluid Ordered: amoxicillin, 875 mg = 1 tab(s), Oral, BID, X 7 day(s), # 14 tab(s), Refills(s) 0, Pharmacy: [email or web address], 158, cm, 01/22/24 9:12:00 EDT, Height/Length [...] vaccine, inac (more content not included)... Normal [facility] Comment on above: Result Comment: Elec [...] day(s), # 30 tab(s), Refills(s) 1, Pharmacy: [facility], 158, cm, 12/24/23 13:52:00 EDT, Height/Length Dosing, 54.9, kg, 12/24/23 13:52:00 EDT, Weight Dosing 2. BMI 21.0-21.9, adult (Z68.21: Body mass index [BMI] 21.0-21.9, adult) BMI education complete Ordered: cabotegravir, 30 mg = 1 tab(s), Oral, Daily, to be taken for 28 days prior to starting IM injections, # 28 tab(s), Refills(s) 0, Pharmacy: [facility], 158, cm, 11/26/23 13:08:00 EST, Height/Length Dosing, 54.3, kg, 11/26/23 13:08:00 EST, Weight Dosing ondansetron, 4 mg = 1 tab(s), Oral, Daily, 1 hour prior to taking medication, X 30 day(s), # 30 tab(s), Refills(s) 1, Pharmacy: [facility]5, 158, cm, 12/24/23 13:52:00 EDT, Height/Length Dosing, 54.9, kg, 12/24/23 13:52:00 EDT, Weight Dosing 3. Smoker (F17.200: Nicotine dependence, unspecified, uncomplicated) consider not smoking Ordered: cabotegravir, 30 mg = 1 tab(s), Oral, Daily, to be taken for 28 days prior to starting IM injections, # 28 tab(s), Refills(s) 0, Pharmacy: [facility], 158, cm, 11/26/23 13:08:00 EST, Height/Length Dosing, 54.3, kg, 11/26/23 13:08:00 EST, Weight Dosing ondansetron, 4 mg = 1 tab(s), Oral, Daily, 1 hour prior to taking medication, X 30 day(s), # 30 tab(s), Refills(s) 1, Pharmacy: [facility], 158, cm, 12/24/23 13:52:00 EDT, Height/Length [...] unspecified formulation 03/25/1995 (more content not included)... [facility] Comment on above: Result Comment: Elec tronically Signed By: Waleska Dean\.br\Date and Time Signed: 12/24/23 15:33 EDT Provider Letteron 12-17-2023 Provider Letter December 17, 2023 MAGGIE NOBLES [address] [place] [id number] : 1995 Dear Maggie , We have been trying to reach you with no success. It is important that you return our call regarding your lab results upon receiving this letter. Also, at the time of your call, please provide us with your current information. Thank you for your prompt attention to this matter. Sincerely, [place] [address] [facility] Reminderson 12-17-2023 Reminders - From: Waleska Dean To: B - Clinical; Sent: 11/28/2023 08:13:45 EST Show [...] 11/26/2023 13:43 AST 17 Int._Unit/L (5 - ) 11/26/2023 13:43 HIV Screen 4th Generation w/Rfx Non Reactive (Non Reactive - ) lvm for patient to return call please advise pt of message below LVM for patient to return call Left third message for patient to return call. Normal [facility] ED Note-Physicianon 11-29-19 ED Note-Physician [id number] .00TIFF Normal [facility] HIV Screen 4th Generation wR fxon 11-28-2023 HIV 1+2 Ab+HIV1 p24 Ag IA Ql Non-Reactive Invalid Interpretation Code Non Reactive [facility] Comment on above: Result Comment: HIV Negative HIV-1/HIV-2 antibodies and HIV-1 p24 antigen were NOT detected. There is no laboratory evidence of HIV infection. Performed at: [facility] [id number] PhD Alexandre Campo Performed By: #### 2 [id number] #### [facility] [address] [place] [address] Marian 11-26-2023 ALT No additional P-5'-P [Catalytic activity/Vol] 13 Int._Unit/L Normal 6- [facility] Comment on above: Performed By: #### 2 [id number] #### [facility] [address] [place] [address] Goldie 11-26-2023 AST [Catalytic activity/Vol] 17 Int._Unit/L Normal - [facility] Comment on above: Performed By: #### 2 [id number], [id number] #### [facility] [address] [place] [address] Ambulatory Visit Summaryon 0 11-26-2023 Ambulatory Visit [...] 1:40 PM EDT With: Waleska Dean Where: [facility] [place] Normal [facility] CHEMISTRYOrdered By: SYSTEM SYSTEM on 11-26-2023 ALT No additional P-5'-P [Catalytic activity/Vol] 13 [iU]/d Normal 6 - 46 Int._Unit/L Remisol Chem AST [Catalytic activity/Vol] 17 [iU]/d Normal 5 - 43 Int._Unit/L Remisol Chem Family Medicine Office/Clini c Noteon 11-26-2023 Family Medicine Office/Clinic Note HPI Staff Maggie is a 28 year old male presenting to [facility] care Establish Care: History: Any previous diagnosis: Anxiety/ panic attacks History of seeing any specialist: Therapist , [employer] book [employer] When was your last doctors visit: Last [...] oral cabotegravir for 28 days. will contact [facility] to see if they carry the IM [...] Screen 4th Generation wRfx Lab Specimen Collect [id number] 2. BMI 21.0-21.9, adult (Z68.21: Body mass index [BMI] 21.0-21.9, adult) BMi education complete Ordered: cabotegravir, 30 mg = 1 tab(s), Oral, Daily, to be taken for 28 days prior to starting IM injections, # 28 tab(s), Refills(s) 0, Pharmacy: [facility], 158, cm, 11/26/23 13:08:00 EST, Height/Length Dosing, 54.3, kg, 11/26/23 13:08:00 EST, Weight Dosing ALT AST HIV Screen 4th Generation wRfx Lab Specimen Collect [id number] 3. Smoker (F17.200: Nicotine dependence, unspecified, uncomplicated) consider not smoking Ordered: cabotegravir, 30 mg = 1 tab(s), Oral, Daily, to be taken for 28 days prior to starting IM injections, # 28 tab(s), Refills(s) 0, Pharmacy: [facility], 158, cm, 11/26/23 13:08:00 EST, Height/Length Dosing, 54.3, kg, 11/26/23 13:08:00 EST, Weight Dosing ALT AST HIV Screen 4th Generation wRfx Lab Specimen Collect [id number] Follow-up No qualifying data available Problem List/Past [...] unspecified formulation (more content not included)... Normal [facility] Comment on above: Result Comment: Elec tronically Signed By: Waleska Dean\.br\Date and Time Signed: 11/26/23 15:48 EST CULTURE URINEon 12-21-2022 CULTURE URINE Culture Observations : NO GROWTH. Normal [facility] Comment on above: Performed By: #### U RCX #### [facility] [address] [place] [address] Dr. Ash Frederick UA RANDOM W/MICROSCOPICon BACTERIA TRACE Abnormal NONE SEEN [facility] Comment on above: Performed By: #### U AMIC #### [facility] [address] [place] [address] Dr. Ash Frederick Bilirubin Ql (U) Negative Normal NEGATIVE [facility] Comment on above: Performed By: #### U AMIC #### [facility] [address] [place] [address] Dr. Ash Frederick CAST NONE SEEN Normal NONE SEEN [facility] Comment on above: Performed By: #### U AMIC #### [facility] [address] [place] [address] Dr. Ash Frederick Clarity (U) CLEAR Normal CLEAR [facility] Comment on above: Performed By: #### U AMIC #### [facility] [address] [place] [address] Dr. Ash Frederick Color (U) YELLOW Normal YELLOW [facility] Comment on above: Performed By: #### U AMIC #### [facility] [address] [place] [address] Dr. Ash Frederick Crystals LM Nom (Urine sed) NONE SEEN Normal NONE SEEN [facility] Comment on above: Performed By: #### U AMIC #### [facility] [address] [address] [address] Ash Frederick Epithelial cells LM Ql (Urine sed) FEW Abnormal NONE SEEN /RARE [facility] Comment on above: Performed By: #### U AMIC #### [facility] [address] [address] [address] Ash Frederick Glucose Ql (U) Negative Normal NEGATIVE [facility] Comment on above: Performed By: #### U AMIC #### [facility] [address] [address] [address] Ash Frederick Hemoglobin Ql (U) Negative Normal NEGATIVE [facility] Comment on above: Performed By: #### U AMIC #### [facility] [address] [address] [address] Ash Frederick Ketones Ql (U) Negative Normal NEGATIVE [facility] Comment on above: Performed By: #### U AMIC #### [facility] [address] [address] [address] Ash Frederick LEUKOCYTES Negative Normal NEGATIVE [facility] Comment on above: Performed By: #### U AMIC #### [facility] [address] [address] [address] Ash Frederick MUCOUS TRACE Abnormal NONE SEEN [facility] Comment on above: Performed By: #### U AMIC #### [facility] [address] [address] [address] Ash Frederick Nitrite Ql (U) Negative Normal NEGATIVE [facility] Comment on above: Performed By: #### U AMIC #### [facility] [address] [address] [address] Ash Frederick pH (U) 5.5 [pH] Normal 5-9 [facility] Comment on above: Performed By: #### U AMIC #### [facility] [address] [address] [address] Ash Frederick RBC 2-5 Abnormal 0-2 [facility] Comment on above: Performed By: #### U AMIC #### [facility] [address] [address] [address] Ash Frederick SPEC GRAVITY >=1.030 Abnormal 1.005-<=1.025 [facility] Comment on above: Performed By: #### U AMIC #### [facility] [address] [address] [address] Ash Frederick UA PROTEIN TRACE Normal NEGATIVE/ TRACE [facility] Comment on above: Performed By: #### U AMIC #### [facility] [address] [address] [address] Ash Frederick Urobilinogen Qn (U) 0.2 {Chun'U}/dL Normal 0.2 - 1. 0 [facility] Comment on above: Performed By: #### U AMIC #### [facility] [address] [place] [address] Dr. Ash Frederick WBC 2-5 Abnormal NONE SEEN [facility] Comment on above: Performed By: #### U AMIC #### [facility] [address] [address] [address] Ash Frederick CHLAMYDIA/GONOCOCCUS MARY KAY (SW AB/URINE/PAPon 12-14-2022 Chlamydia trachomatis, MARY KAY Negative Normal Negative [facility] Comment on above: Performed By: #### C T/NGNA #### [facility] [address] [place] [address] Dr. Ash Frederick Neisseria gonorrhoeae, MARY KAY Negative Normal Negative [facility] Comment on above: Performed By: #### C T/NGNA #### [facility] [address] [place] [address] Dr. Ash Frederick HEPATITIS PANEL, ACUTEon HBsAg Screen Negative Normal Negative [facility] Comment on above: Performed By: #### H EPACUT #### [facility] [address] [place] [address] Dr. Ash Frederick HCV AB Non-Reactive Normal Non Reactive [facility] Comment on above: Performed By: #### H EPACUT #### [facility] [address] [place] [address] Dr. Ash Frederick Hep A Ab, IgM Negative Normal Negative The [facility] Comment on above: Performed By: #### H EPACUT #### [facility] [address] [address] [address] Ash Frederick Hep B Core Ab, IgM Negative Normal Negative [facility] Comment on above: Performed By: #### H EPACUT #### [facility] [address] [address] [address] Ash Frederick Interpretation: Comment Normal [facility] Comment on above: Result Comment: Not infected with HCV unless early or acute infection is suspected (which may be delayed in an immunocompromised individual), or other evidence exists to indicate HCV infection. Performed By: #### H EPACUT #### [facility] [address] [address] [address] Ash Frederick HERPES SIMPLEX 1/2 IGGon HSV 1 IgG, Type Spec 34.60 index Critically high 0.00-0.90 [facility] Comment on above: Result Comment: Nega tive <0.91 Equivocal 0.91 - 1.09 Positive >1.09 Note: Negative indicates no antibodies detected to HSV-1. Equivocal may suggest early infection. If clinically appropriate, retest at later date. Positive indicates antibodies detected to HSV-1. Performed By: #### H SV IGG #### [facility] [address] [place] [address] Dr. Ash Frederick HSV 2 IgG Type Spec <0.91 Normal 0.00-0.90 [facility] Comment on above: Result Comment: Nega tive <0.91 Equivocal 0.91 - 1.09 Positive >1.09 Note: Negative indicates no HSV-2 antibodies detected. Positive indicates HSV-2 antibodies detected. Equivocal and low positive HSV-2 screens (Index 0.91-5.00) may be false positive and are reflexed to supplemental testing in accordance with CDC guidelines. Performed By: #### H SV IGG #### [facility] [address] [place] [address] Dr. Ash Frederick HIV 1 AND 2 WITH REFLEXon HIV Screen 4th Generation wRfx Non-Reactive Normal Non Reactive [facility] Comment on above: Result Comment: HIV Negative HIV-1/HIV-2 antibodies and HIV-1 p24 antigen were NOT detected. There is no laboratory evidence of HIV infection. Performed By: #### H IV12 #### [facility] [address] [place] [address] Dr. Ash Frederick RPR QUANTon 12-13-2022 Rapid Plasma Reagin, Quant Non-Reactive Normal NonRea<1:1 [facility] Comment on above: Result Comment: Plea se Note: This test does not meet current guidelines for screening and diagnosis of syphilis. This test is intended for following treatment response in patients being treated for syphilis infection. To screen for syphilis infection, a reflex cascade that includes both RPR and a treponema-specific assay should be utilized, such as Treponema pallidum (Syphilis) Screening [place] (113978) or Rapid Plasma Reagin (RPR) Test With Reflex to Quantitative RPR and Confirmatory Treponema pallidum Antibodies ([id number]). Performed By: #### R PRQ #### [facility] [address] [place] [address] Dr. Ash Frederick CBC AUTO DIFFon 12-12-2022 BASO # 0.1 103/ul Normal 0.0-0.1 [facility] Comment on above: Performed By: #### C BC #### [facility] [address] [place] [address] Dr. Ash Frederick Basophils/100 WBC (Bld) 1.4 % Normal 0.2-2.0 [facility] Comment on above: Performed By: #### C BC #### [facility] [address] [place] [address] Dr. Ash Frederick EO # 0.2 103/ul Normal 0.0-0.7 [facility] Comment on above: Performed By: #### C BC #### [facility] [address] [place] [address] Dr. Ash Frederick Eosinophils/100 WBC (Bld) 3.4 % Normal 0.9-7.0 [facility] Comment on above: Performed By: #### C BC #### [facility] [address] [place] [address] Dr. Ash Frederick Erythrocyte distribution width (RBC) [Ratio] 12.4 % Normal 11.0-15.0 [facility] Comment on above: Performed By: #### C BC #### [facility] [address] [place] [address] Dr. Ash Frederick Hematocrit (Bld) [Volume fraction] 44.1 % Normal 42.0-54.0 [facility] Comment on above: Performed By: #### C BC #### [facility] [address] [place] [address] Dr. Ash Frederick Hemoglobin (Bld) [Mass/Vol] 15.1 g/dL Normal 14.0-18.0 [facility] Comment on above: Performed By: #### C BC #### [facility] [address] [place] [address] Dr. Ash Frederick IG # 0.01 10e3/ul Normal 0.00-0.03 [facility] Comment on above: Performed By: #### C BC #### [facility] [address] [place] [address] Dr. Ash Frederick IG % 0.2 % Normal 0.0-0.5 [facility] Comment on above: Performed By: #### C BC #### [facility] [address] [place] [address] Dr. Ash Frederick LYMPH # 1.5 103/ul Normal 1.2-3.8 [facility] Comment on above: Performed By: #### C BC #### [facility] [address] [place] [address] Dr. Ash Frederick Lymphocytes/100 WBC (Bld) 34.8 % Normal 20.5-60.0 [facility] Comment on above: Performed By: #### C BC #### [facility] [address] [place] [address] Dr. Ash Frederick MANUAL DIFF REQ NO Normal [facility] Comment on above: Performed By: #### C BC #### [facility] [address] [place] [address] Dr. Ash Frederick MCH (RBC) [Entitic mass] 30.3 pg Normal 25.9-34.0 [facility] Comment on above: Performed By: #### C BC #### [facility] [address] [place] [address] Dr. Ash Frederick MCHC (RBC) [Mass/Vol] 34.2 g/dL Normal 29.9-35.2 [facility] Comment on above: Performed By: #### C BC #### [facility] [address] [place] [address] Dr. Ash Frederick MCV (RBC) [Entitic vol] 88.4 fL Normal 80.0-94.0 [facility] Comment on above: Performed By: #### C BC #### [facility] [address] [place] [address] Dr. Ash Frederick MONO # 0.4 103/ul Normal 0.3-0.8 [facility] Comment on above: Performed By: #### C BC #### [facility] [address] [place] [address] Dr. Ash Frederick Monocytes/100 WBC (Bld) 10.1 % Normal 1.7-12.0 [facility] Comment on above: Performed By: #### C BC #### [facility] [address] [place] [address] Dr. Ash Frederick NEUT # 2.2 103/ul Normal 1.4-6.5 [facility] Comment on above: Performed By: #### C BC #### [facility] [address] [place] [address] Dr. Ash Frederick Neutrophils/100 WBC (Bld) 50.1 % Normal 43.0-75.0 [facility] Comment on above: Performed By: #### C BC #### [facility] [address] [place] [address] Dr. Ash Frederick Platelet mean volume (Bld) [Entitic vol] 8.5 fL Critically low 9.5-13.5 [facility] Comment on above: Performed By: #### C BC #### [facility] [address] [place] [address] Dr. Ash Frederick PLT 218 103/ul Normal 150-450 [facility] Comment on above: Performed By: #### C BC #### [facility] [address] [place], [place] [address] Dr. Ash Frederick RBC 4.99 106/ul Normal 4.70-6.10 [facility] Comment on above: Performed By: #### C BC #### [facility] [address] [place], [place] [address] Dr. Ash Frederick WBC 4.4 103/ul Normal 4.0-11.0 [facility] Comment on above: Performed By: #### C BC #### [facility] [address] [place], [place] [address] Dr. Ash Frederick Encounters Encounter Date Encounter Type Care Provider Facility Start: 05-28-2024 ambulatory Waleska L Mis Facility: [facility] Start: 05-13-2024 ambulatory Fredrick ABDI Facility :[facility] Start: 05-13-2024 End: 05-13-2024 Patient encounter procedure Fredrick ABDI [facility] Start: 04-09-2024 ambulatory Cher Delcid Facility: [facility] Start: 03-23-2024 End: 03-23-2024 ambulatory [employer] Waleska L Mis Facility:[facility] Start: 03-23-2024 ambulatory Cher Delcid Facili ty: [facility] Start: 02-27-2024 End: 02-27-2024 Lab Drop off Waleska L Mis [facility] Start: 02-27-2024 End: 02-27-2024 ambulatory Waleska L Mis Facility:[facility] Start: 01-22-2024 End: 01-22-2024 ambulatory Waleska L Mis Facility:[facility] Start: 12-24-2023 End: 12-24-2023 ambulatory Waleska L Mis Facility:[facility] Start: 11-26-2023 ambulatory Waleska Mis Facility:[facility] Start: 11-26-2023 End: 11-26-2023 Lab Drop off Waleska L Mis [facility] Start: 11-26-2023 End: 11-26-2023 ambulatory Waleska L Mis Facility:[facility] Start: 10-15-2023 ambulatory Akbar Jamesz Nithya acility:[facility] Start: 12-21-2022 End: 12-22-[address] NATALY CARMONA . Facility: Start: 12-12-2022 End: 12-13-[address] NATALY CARMONA . Facility: Procedures Date Procedure Procedure Detail Performing Clinician Extraction of wisdom tooth Raf ABDI Immunizations Immunization Date Immunization Notes Care Provider Fa cility 09-18-2021 SARS-CoV-2 (COVID-19 ) mRNA-1273 vaccine Waleska Mis [facility] [place] [facility] Comment on above: Result Comment: 2023: TPVALL 07-14-2021 influenza, unspecifi ed formulation Waleska Mis [facility] [place] [facility] 02-20-2021 SARS-CoV-2 (COVID-19 ) mRNA-1273 vaccine Waleska Mis [facility] [place] [facility] Comment on above: Result Comment: 2023: TPVALL 01-23-2021 SARS-CoV-2 (COVID-19 ) mRNA-1273 vaccine Waleska Mis [facility] [place] [facility] Comment on above: Result Comment: 2023: TPVALL 07-26-2020 influenza virus vaccine, unspecified formulation Waleska Mis [facility] [place] [facility] 07-13-2019 influenza virus vaccine, unspecified formulation Waleska Mis [facility] [place] [facility] 08-13-2018 influenza virus vaccine, unspecified formulation Waleska Mis [facility] [place] [facility] 03-01-1999 DTaP, unspecified formulation Waleska Mis [facility] [place] [facility] 03-01-1999 measles, mumps and rubella virus vaccine Waleska Mis [facility] [place] [facility] 03-25-1995 DTaP, unspecified formulation Waleska Mis [facility] [place] [facility] 03-25-1995 Hib, unspecified formulation Waleska Mis [facility] [place] [facility] 03-25-1995 measles, mumps and rubella virus vaccine Waleska Mis [facility] [place] [facility] 04-04-1994 hepatitis B vaccine, pediatric or pediatric/adolescent dosage Waleska Mis [facility] [place] [facility] 04-04-1994 Hib, unspecified formulation Waleska Mis [facility] [place] [facility] 1993 hepatitis B vaccine, pediatric or pediatric/adolescent dosage Waleska Mis [facility] [place] [facility] 1993 Hib, unspecified formulation Waleska Mis [facility] [place] [facility] 1993 hepatitis B vaccine, pediatric or pediatric/adolescent dosage Waleska Mis [facility] [place] [facility] 1993 Hib, unspecified formulation Waleska Mis [facility] [place] [facility] Payers Date Payer Category Payer Unknown [id number] 2023 Unknown [id number] 2023 Self-pay 2022 Medicaid [id number] 1993 Unknown [id number] 2.16.84 [id number] 1993 Unknown [id number] 2.16.84 [id number] 1993 Unknown [id number] 2.16.8 [id number] 1993 Unknown [id number] 2.16.8 [id number] 1993 Unknown [id number] 2.16.8 [id number] 1993 Unknown [id number] 2.16.8 [id number] 1993 Unknown [id number] 2.16.8 [id number] 1993 Unknown [id number] 2.16.8 [id number] 1993 Unknown [id number] 2.16.8 [id number] 1993 Unknown [id number] 2.16.8 [id number] 1993 Unknown [id number] 2.16.8 [id number] 1993 Unknown [id number] 2.16.8 [id number] Social History Date Type Detail Facility Start: 11-26-2023 End: 03-23-2024 Tobacco smoking status Heavy tobacco smoker (finding) [facility] [place] [facility] Sex Assigned At Female [facility] Tobacco smoking status Never [facility] Evaluation + Plan note Note Date & Type Note Facility Evaluation + Plan note Future Appointments Appointment Date:12/24/2023 01:40:00 PM Scheduled Provider:Waleska Dean Location:[facility] Appointment Type:FM Open Diagnostic Tests PendingHIV Screen 4th Generation wRfx 11/26/[address] [facility] Evaluation + Plan note Note Date & Type Note Facility Evaluation + Plan note Future Appointments Appointment Date:05/28/2024 01:20:00 PM Scheduled Provider: Location:[facility] Appointment Type:FM Lab Draw Diagnostic Tests PendingHIV Screen 4th Generation wRfx 02/27/[address] [facility] Hospital course Narrative Note Date & Type Note Facility Hospital course Narrative No data available for this section [facility] Hospital Discharge instructions Note Date & Type Note Facility Hospital Discharge instructions No data available for this section [facility] Progress note Note Date & Type Note Facility Progress note No data available for this section [facility] Summary Purpose Family History No Family History Records Found No data available for this section No Family History Records Found No data available for this section No Family History Records FoundNo Family History Records Found No data available for this section Advance Directives No Advanced Directives Records FoundNo Advanced Directives Records FoundNo Advanced Directives Records FoundNo Advanced Directives Records Found Additional Source Comments (unrecognized sect ion and content) No Status Records FoundNo Status Records FoundNo Status Records FoundNo Status Records Found INFORMATION SOURCE (unrecogn ized section and content) DATE CREATED AUTHOR 01/03/2023 [facility] DATE CREATED AUTHOR AUTHOR'S ORGANIZ ATION 12/19/2023 [facility] DATE CREATED AUTHOR AUTHOR'S ORGANIZ ATION 03/25/2024 [facility] DATE CREATED AUTHOR AUTHOR'S ORGANIZ ATION 05/10/2024 [facility] Patient Care team informatio n (unrecognized section and content) Personnel Name: Waleska Dean Address: Address: [address] [place] [address]- Personnel Name: Waleska Dean Address: Address: [address] [place] [address]- Personnel Name: Waleska Dean Address: Address: [address] [place] [address]- FOR RECORDS PERTAINING TO PATIENTS WHO ARE [...] BE BASED ON THE PRIMARY CLINICAL RECORDS. [facility] [employer] [facility]. provides no warranty or guarantee of the accuracy or completeness of information in this document.
[2024-06-26 11:58] LABS: Alanine Aminotransferase 148 U/L (16-63); Albumin Globulin Ratio 1.5; Albumin Level 4.5 g/dL (3.4-5.0); Alkaline Phosphatase 96 U/L (46-116); Anion Gap 11.4; Aspartate Amino Transferase 43 U/L (15-37); BUN Creatinine Ratio 15.1; Bilirubin Total 1.1 mg/dL (0.2-1.0); Calcium 9.4 mg/dL (8.5-10.1); Carbon Dioxide 30.5 mmol/L (21.0-32.0); Chloride 100 mmol/L (98-107); Estimated GFR (African America >60 (>=60); Estimated GFR (Non-African Ame >60 (>=60); Glucose 88 mg/dL (74-106); Potassium 3.9 mmol/L (3.5-5.1); Sodium 138 mmol/L (136-145); Total Protein 7.5 g/dL (6.4-8.2)
[2024-06-27 06:09] LABS: HIV Ab/p24 Ag Screen Non Reactive (Non Reactive)
== END 2024-06-26 11:07 | disposition home or self-care (01) ==
LOC: LAB 11:08
PROVIDERS: PCP Family Medicine; Visit Provider Family Medicine
DX: B02.9 Zoster without complications (principal)
CPT/HCPCS: 36415; 80053; 87389